=== PATIENT | female | born 1950 | race Caucasian/White ===

== ENCOUNTER → 2017-07-13 | Outpatient (CLI) | payer MEDICARE ==
[2017-07-13 14:19] VITALS: BP 146/78; PULSE 73; RESP 16
--- NOTE | 2017-07-13 14:51 | P.CONS ---
History of Present Illness - Reason for Consult Consult date: 07/13/17 - Chief Complaint Lower back pain - History of Present Illness This is a 67-year-old female with history of episodic lower back pain that comes every 2-3 months and last for 4-6 weeks. Today she denies any pain in her lower back. The back pain usually goes across her lower back and down both legs to the knee level bilaterally sometimes the pain reaches the foot. She has tingling on the lateral aspect of her right thigh as she states. She denies any bowel or bladder dysfunction or any weakness in the lower extremities except when her back pain is severe. The pain does not wake her up at night and she denies any weight loss recently. She does have history of migraine headache and diabetes. She takes [place] for her migraine headache after she failed to respond to multiple antimigraine medications. The patient never tried physical therapy as treatment for her back pain. The lumbar spine MRI showed an extruded left paracentral disc herniation with left lateral recess stenosis and moderate to severe disc desiccation with vacuum disc at L5- S1 level. Review of Systems Review of Systems : 1- Constitutional : no chills , no fever , no night sweats , 2- Ears : no ear discharge , no change in hearing 3-Nose, Mouth ,Throat ; no bleeding gums, no sore throat , no epistaxis , 4-Cardiovascular : Denies chest pain, , no orthopnea , no palpitation 5-Respiratory : Denies cough , no dyspnea , no hemoptysis 6-Gastrointestinal :, no change in bowel habits , no coffee- ground emesis . 7-Genitourinary : No hematuria , no discharge , no incontinence, 8-Musculoskeletal : No gait dysfunction , report low back pain , 9- Neurological : no ataxia , no tremor , no seizure , 10-Psychatric , no suicidal ideation no hallucination 11- Endocrine : no cold intolerence , no polyuria , no polydypsia , 12-Hematologic : no easy bleeding , no easy brusing , 13-Allergic / immunology : no angioedema , no wheezing ,no allergic rhinitis 14-Integumentary : no brttle nails , no change hair / nails , no foot/leg ulcers . Past Medical History Past Medical History: Asthma, Cancer, Diabetes Mellitus, GERD/Reflux, Thyroid Disorder Additional Past Medical History / Comment(s): Hand tremors. Chronic anemia. Uterine cancer History of Any Multi-Drug Resistant Organisms: None Reported Past Surgical History: Appendectomy, Breast Surgery, Hysterectomy, Tonsillectomy Additional Past Surgical History / Comment(s): bunionectomy right foot. Breast reduction Past Psychological History: Anxiety Smoking Status: Former smoker Past Alcohol Use History: Rare Medications and Allergies Allergies Allergy/AdvReac Type Severity Reaction Status Date / Time erythromycin base Allergy Unknown Verified 07/13/17 14:02 Sulfa (Sulfonamide Allergy Unknown Verified 07/13/17 14:02 Antibiotics) codeine AdvReac Nausea & Verified 07/13/17 14:02 Vomiting Physical Exam Vitals: Vital Signs Pulse Resp BP 07/13/17 14:03 73 16 146/78 Intake and Output 07/12/17 07/13/17 07/13/17 22:59 06:59 14:59 Other: Weight 78.925 kg Patient Weight 07/14/17 06:59 Weight 78.925 kg Alert oriented 3 in no apparent distress The patient has reduced range of motion of the lumbar spine Straight leg raising test negative bilaterally Neuro exam of the lower extremities showed normal and symmetrical deep tendon reflexes and normal and symmetrical muscle strength Dev's test negative bilaterally Internal and external rotation of the hip joints did not elicit any pain She has mild tenderness in the lumbar paravertebral area bilaterally No sacroiliac joint tenderness No greater trochanter tenderness bilaterally Lungs are clear to auscultation Heart is regular no murmurs Cranial nerves exam grossly normal with no focal neurologic changes Abnormal cerebellar signs are absent Assessment and Plan Plan: This is a 67-year-old female with: Lumbar spondylosis without myelopathy Lumbar degenerative disc disease Migraine headache Diabetes Essential tremors The patient gets episodic lower back pain however today she denies any pain. I will send the patient to have physical therapy. The patient will call us with the first sign of pain in her lower back and then we will schedule her for lumbar epidural steroid injection under fluoroscopic guidance. The patient states that she gets agitated when she gets steroids and and that's why I think we should use only 40 mg of Depo-Medrol or Kenalog. I thank Dr. You for the referral.
== END | disposition home or self-care (01) ==
LOC: PNWHC3 13:51
PROVIDERS: ATTEND Anesthesiology
DX: M51.36 Other intervertebral disc degeneration, lumbar region (principal); M47.816 Spondylosis without myelopathy or radiculopathy, lumbar region; G43.909 Migraine, unspecified, not intractable, without status migrainosus; E11.9 Type 2 diabetes mellitus without complications; G25.0 Essential tremor; J45.909 Unspecified asthma, uncomplicated; E07.9 Disorder of thyroid, unspecified; F41.9 Anxiety disorder, unspecified; K21.9 Gastro-esophageal reflux disease without esophagitis; Z85.42 Personal history of malignant neoplasm of other parts of uterus; Z98.890 Other specified postprocedural states; Z79.891 Long term (current) use of opiate analgesic; Z90.710 Acquired absence of both cervix and uterus; Z87.891 Personal history of nicotine dependence; Z88.5 Allergy status to narcotic agent; Z88.1 Allergy status to other antibiotic agents
CPT/HCPCS: 99211

== ENCOUNTER 2017-09-13 09:35 | Day surgery (SDC) | payer MEDICARE ==
[2017-09-11 16:05] VITALS: BMI 33.6
[2017-09-13 10:23] VITALS: RESP 16; TEMP 97.7
[2017-09-13] MEDS ORDERED: IV FLUID CONTINUATION 1,000 ML IV ONE ×2 (10:32)
[2017-09-13] MEDS ORDERED: LIDOCAINE 1% 20 ML VIAL (10MG/ML) FOR IV START INTRADERMA ONE (10:33)
[2017-09-13] MEDS ORDERED: LACTATED RINGERS 1,000 ML IV SCH (10:45)
[2017-09-13 10:48] LABS: Glucose,Whole Blood 101 mg/dL (75-99)
[2017-09-13] MEDS ORDERED: LACTATED RINGERS 1,000 ML IV ONE (12:05)
[2017-09-13 12:18] VITALS: BP 140/66; PULSE 68
--- NOTE | 2017-09-13 13:39 | FL ---
EXAMINATION TYPE: FL guided pain mgmt statistic DATE OF EXAM: 09/13/2017 HISTORY: Flouroscopy time 18 seconds of fluoroscopy provided. IMPRESSION: 1. Fluoroscopy time.
--- NOTE | 2017-09-13 15:12 | P.PCN ---
Date of Procedure: 09/13/17 Surgeon: Keyshawn Enriquez Pathology: none sent Condition: stable Disposition: PACU Description of Procedure: PREOPERATIVE DIAGNOSIS: 1-Lumbar radiculitis. POSTOPERATIVE DIAGNOSIS: 1-Lumbar radiculitis. PROCEDURE 1. Lumbar epidural steroid injection under fluoroscopic guidance at the L5-S1 level. 2. Lumbar epidurogram. ANESTHESIA: Local with 1% lidocaine; IV sedation with Versed/fentanyl. EBL: Minimal PROCEDURE INDICATION: The patient with low back pain and radiculitis symptoms unresponsive to conservative treatment. Fluoroscopy was used to optimize visualization of the needle placement and to maximize safety. No use of blood thinners. PROCEDURE DESCRIPTION / TECHNIQUE: The patient was seen and identified in the preoperative area. Risks, benefits, complications, and alternatives were discussed with the patient, including but not limited to bleeding, infection, nerve damage, allergic reactions to medications, and incomplete pain relief. The patient agreed to proceed with the procedure and signed the consent after all questions were answered. IV was started, and vital signs were stable. Patient was taken to the OR and time out was completed to confirm patient position, procedure, laterality of pain, and allergies. The patient was placed in the prone position on procedure table and a pillow was placed under the abdomen to reduce lumbar lordosis. The lumbosacral area was prepped and draped in the usual sterile fashion. Critical pause was taken. Vital signs were closely monitored during the procedure. Conscious sedation was used during the procedure to decrease patients anxiety. Using anterior-posterior fluoroscopy, the L5-S1 interlaminar space was identified and the skin over this site was marked and then infiltrated with 1% lidocaine subcutaneously in a paramedian fashion. Subsequently, a 20-gauge 6- inch Tuohy epidural needle was inserted and advanced toward the epidural space using the Loss of resistance technique and guided by AP and lateral fluoroscopy. The correct needle position in the epidural space was verified with the injection of 2 mL of the water soluble contrast dye Isovue 200 contrast and observing an excellent epidurogram with the epidural spread of the dye, after negative aspiration for blood and CSF and in the absence of paresthesias. Again after negative aspiration, a 6 ml mixture containing 40 mg of Depo Medrol and 2 ml of preservative free Normal Saline, and 2 ml of preservative free lidocaine 1% solution was injected and a washout of epidurogram was seen. Needle was withdrawn intact, skin was cleansed, and bandages were applied. COMPLICATIONS: None COMMENTS: DISPOSITION / PLANS: The patient was placed in a supine position and transferred to the recovery area in a stable condition for observation. There was no evidence of lower extremity motor or sensory deficit after the procedure. Patient was discharged from the recovery room after meeting discharge criteria. Home discharge instructions were given to the patient by the staff. The patient was reexamined prior to discharge and there were no issues. The patient will schedule a follow up in the clinic in 2-4 weeks.
== END 2017-09-13 12:35 | disposition home or self-care (01) ==
LOC: ORPAIN 09:35
PROVIDERS: ATTEND Anesthesiology
DX: G89.29 Other chronic pain (principal); M54.10 Radiculopathy, site unspecified; M54.5 Low back pain; I10 Essential (primary) hypertension; E78.5 Hyperlipidemia, unspecified; E11.9 Type 2 diabetes mellitus without complications; Z79.84 Long term (current) use of oral hypoglycemic drugs; Z79.890 Hormone replacement therapy; Z79.891 Long term (current) use of opiate analgesic; Z79.51 Long term (current) use of inhaled steroids; Z79.899 Other long term (current) drug therapy; Z88.8 Allergy status to other drugs, medicaments and biological substances; Z88.1 Allergy status to other antibiotic agents; Z88.5 Allergy status to narcotic agent; Z88.2 Allergy status to sulfonamides
CPT/HCPCS: 62323; J2250; J1030; J3010; Q9966

== ENCOUNTER → 2017-10-27 | Outpatient (CLI) | payer MEDICARE ==
--- NOTE | 2017-10-27 12:36 | US ---
EXAMINATION TYPE: US venous doppler duplex LE RT DATE OF EXAM: 10/27/2017 11:54 AM COMPARISON: NONE CLINICAL HISTORY: M25.561PAIN IN RT KNEE,M17.11 OSTEOARTHRITIS. SIDE PERFORMED: Right TECHNIQUE: The lower extremity deep venous system is examined utilizing real time linear array sonog ester with graded compression, doppler sonography and color-flow sonography. VESSELS IMAGED: External Iliac Vein (EIV) Common Femoral Vein Deep Femoral Vein Greater Saphenous Vein * Femoral Vein Popliteal Vein Small Saphenous Vein * Proximal Calf Veins (* superficial vessels) Grayscale, color doppler, spectral doppler imaging performed of the deep veins of the right lower ext remity. There is normal flow, compressibility, vascular waveforms. Right Leg: Negative for DVT IMPRESSION: No sonographic evidence of deep venous thrombosis within the right lower extremity.
== END | disposition home or self-care (01) ==
LOC: RADUSWWP 11:30
PROVIDERS: ATTEND Orthopaedic Surgery
DX: M25.561 Pain in right knee (principal); M17.11 Unilateral primary osteoarthritis, right knee

== ENCOUNTER → 2017-11-02 | Outpatient (CLI) | payer MEDICARE ==
[2017-11-02 11:35] VITALS: BP 146/69; PULSE 68; RESP 16
--- NOTE | 2017-11-02 11:54 | P.PAINPG ---
Subjective Progress Note Date: 11/02/17 Principal diagnosis: Lumbar radiculopathy Shira cr 67-year-old woman with a history of lumbar radiculopathy who is undergone one previous lumbar steroid injection. She returns today to our clinic for reevaluation. She reports that she received nearly 100% relief of her leg pain from this procedure. She continues to have some back pain and is interested in having another injection performed hopefully help alleviate these symptoms. Objective - Vital Signs Vital signs: Vital Signs Temp Pulse 68 11/02/17 11:26 Resp 16 11/02/17 11:26 BP 146/69 11/02/17 11:26 Pulse Ox 96 11/02/17 11:26 Intake & Output 11/01/17 11/02/17 11/02/17 18:59 06:59 18:59 Weight 86.183 kg - Exam General: The patient is alert and oriented. Patient is not sedateded Patient is a question appropriately. Cardiac: Heart is regular in rate and rhythm Respiratory: Clear to auscultation. No audible wheezes. Abdomen: Soft nontender nondistended. Lower extremities: Strength is normal bilaterally. Sensation is normal bilaterally. Reflexes are preserved and symmetric bilaterally. Straight leg raise is negative bilaterally. Assessment and Plan Assessment: Plan of Care 1. Medications: Patient receives medications from her primary care physician. She will continue to receive these from them. 2. Interventions: Scheduled patient for repeat of lumbar epidural steroid injection at the L5-S1 interspace. Initially, this procedure was extremely helpful for her. 3. Referrals: None 4. Testing: none 5. Psychological: She denies severe depression or anxiety. No referrals were given today. (1) Lumbar radiculopathy Current Visit: Yes Status: Acute Code(s): M54.16 - RADICULOPATHY, LUMBAR REGION SNOMED Code(s): 932038154 PQRS Measure Charge Sheet Measure #130: Documentation of Current Meds in Medical Chart: Patient's medications documented in chart Measure #226: Tobacco Use: Screen & Cessation Intervention: Pt not a tobacco user Measure #111: Pneumonia Vaccination: Pneumococcal vaccine NOT administered or previously given Measure #47: Advance Care Plan: Advance care planning discussed & documented, pt chose/unable to give Measure #412: Opioid Treatment Agreement: No documentation of signed opioid treatment agreement Measure #408: Opioid Therapy Follow-up Evaluation: Patient had NO f/u eval minimum every 3 months during opioid therapy Measure #317: Preventitive Care & Scrn High Bld Press & F/U: Normal blood pressure, f/u not required Measure #128: Body Mass Index (BMI) Screening & Follow-up: BMI documented within normal parameters Measure #131: Pain Assessment & Follow-up: Pain positive & plan documented Measure #431: Unhealthy Alcohol Use Preventative Care & Scrn: Patient identified as unhealthy alcohol user; counseling given PQRS Narrative: Smoking Status Former smoker Do You Want the Pneumonia No Vaccine AT THIS TIME? Blood Pressure 146/69 Pain Intensity [Bilateral 4 Lower Back] Scale Used Numeric (1 - 10) Hx Alcohol Use (MH) Yes: rare Home Medications: Ambulatory Orders Baclofen [Lioresal] 10 mg PO HS 07/13/17 Cyanocobalamin [Vitamin B-12 Injection] 1,000 mcg SQ QMONTH 07/13/17 Fluticasone/Salmeterol [Advair 100-50 Diskus] 2 puff PO BID 07/13/17 Gabapentin [Neurontin] 300 mg PO HS 07/13/17 Hydrocodone/Acetaminophen [Hydrocodon-Acetaminophn 10-325] 1 each PO TID PRN 06/29 Levothyroxine Sodium [Synthroid] 125 mcg PO DAILY 07/13/17 Meloxicam 7.5 mg PO BID 07/13/17 Omeprazole 20 mg PO DAILY 07/13/17 Propranolol HCl [Propranolol HCl ER] 120 mg PO DAILY 07/13/17 metFORMIN HCL [Glucophage] 500 mg PO DAILY 07/13/17 Controlled Substance Measures - Controlled Substance Measures Is patient prescribed a controlled substance at discharge?: No When asked, does pt state using other controlled substances?: No If prescribed controlled substance>3 days was MAPS reviewed?: No If Rx opioid, was Start Talking consent form obtained?: No If opioid is for acute pain is fill amount 7 days or less?: No Was information provided regarding opioid addiction?: No
== END | disposition home or self-care (01) ==
LOC: PNWHC3 10-26 14:30
PROVIDERS: ATTEND Pain Medicine Pain Medicine
DX: M54.16 Radiculopathy, lumbar region (principal); Z87.891 Personal history of nicotine dependence; Z79.891 Long term (current) use of opiate analgesic; Z79.899 Other long term (current) drug therapy; Z79.1 Long term (current) use of non-steroidal anti-inflammatories (NSAID); Z79.84 Long term (current) use of oral hypoglycemic drugs
CPT/HCPCS: 99211

== ENCOUNTER 2017-11-09 08:23 | Day surgery (SDC) | payer MEDICARE ==
[~2017-11-09 08:23] MED LIST: LACTATED RINGERS 1,000 ML IV SCH
[2017-11-09 09:10] VITALS: RESP 16; TEMP 98
[2017-11-09] MEDS ORDERED: LACTATED RINGERS 1,000 ML IV ONE (09:20)
[2017-11-09] MEDS ORDERED: LIDOCAINE 1% 20 ML VIAL (10MG/ML) FOR IV START INTRADERMA ONE (09:21)
[2017-11-09 09:22] LABS: Glucose,Whole Blood 110 mg/dL (75-99)
--- NOTE | 2017-11-09 09:54 | P.PCN ---
Date of Procedure: 11/09/17 Surgeon: Luiz Cameron Description of Procedure: PREOPERATIVE DIAGNOSIS: Herniated nucleus pulposus, left lumbar radiculopathy POSTOPERATIVE DIAGNOSIS: Same PROCEDURE Lumbar epidural steroid injection under fluoroscopic guidance at the L4 5 level. ANESTHESIA: Local with 1% lidocaine 3 ml and IV sedation with Versed 2 mg EBL: Minimal PROCEDURE INDICATION: The patient with low back pain and radiculitis symptoms unresponsive to conservative treatment. Fluoroscopy was used to optimize visualization of the needle placement and to maximize safety. PROCEDURE DESCRIPTION / TECHNIQUE: The patient was seen and identified in the preoperative area. Risks, benefits , complications including but not limited to infections ,bleeding ,allergic reaction to the medications ,nerve damage and not complete pain relief , and alternatives were discussed with the patient. The patient agreed to proceed with the procedure and signed the consent. IV was started, and vital signs were stable. Patient was taken to the OR and time out was completed. The patient was placed in the prone position on procedure table and a pillow was placed under the abdomen to reduce lumbar lordosis. The lumbosacral area was prepped and draped in the usual sterile fashion.ere closely monitored during the procedure. Conscious sedation was used during the procedure to decrease patient's anxiety. Vital signs was monitered during the entire procedure. Using anterior-posterior fluoroscopy, the L5-S1 interlaminar space was identified and the skin over this site was marked and then infiltrated with 1% lidocaine subcutaneously. Subsequently, a 20-gauge Tuohy epidural needle was inserted and advanced toward the epidural space using the Loss of resistance technique and guided by AP and lateral fluoroscopy. The correct needle position in the epidural space was verified with the injection of contrast and observing an excellent epidurogram with the epidural spread of the dye, after negative aspiration for blood and CSF and in the absence of paresthesias. Again after negative aspiration, a 6 ml mixture containing 40 mg of Depo-Medrol was injected and a washout of epidurogram was seen. Needle was withdrawn intact, skin was cleansed, and bandages were applied. COMPLICATIONS: None DISPOSITION / PLANS: The patient was placed in a supine position and transferred to the recovery area in a stable condition for observation. There was no evidence of lower extremity motor or sensory deficit after the procedure. Patient was discharged from the recovery room after meeting discharge criteria. Home discharge instructions were given to the patient by the staff. The patient was reexamined prior to discharge. The patient will schedule a follow up in the clinic in 2-4 weeks.
[2017-11-09] MEDS ORDERED: IV FLUID CONTINUATION 1,000 ML IV ONE (09:58)
[2017-11-09 10:19] VITALS: BP 113/70; PULSE 65
--- NOTE | 2017-11-09 11:00 | FL ---
Fluoroscopy HISTORY: Pain 1 seconds fluoroscopy time supplied to the referring clinician. 1 intraoperative C-arm images docume nt the procedure. See dictated report from anesthesia.
== END 2017-11-09 10:34 | disposition home or self-care (01) ==
LOC: ORPAIN 08:23
PROVIDERS: ATTEND Pain Medicine Pain Medicine
DX: M51.16 Intervertebral disc disorders with radiculopathy, lumbar region (principal); E11.9 Type 2 diabetes mellitus without complications; Z88.2 Allergy status to sulfonamides; Z88.5 Allergy status to narcotic agent; Z88.8 Allergy status to other drugs, medicaments and biological substances; Z88.1 Allergy status to other antibiotic agents
CPT/HCPCS: 62323; J1030

== ENCOUNTER → 2017-11-30 | Day surgery (SDC) | payer MEDICARE ==
[2017-11-27 12:51] VITALS: BMI 33.8
[~2017-11-30] MED LIST changes: +IV FLUID CONTINUATION 1,000 ML IV ONE; +LIDOCAINE 1% 20 ML VIAL (10MG/ML) FOR IV START INTRADERMA ONE
[2017-11-30 08:02] VITALS: TEMP 97.6
[2017-11-30 08:26] LABS: Glucose,Whole Blood 107 mg/dL (75-99)
--- NOTE | 2017-11-30 08:42 | P.PCN ---
Date of Procedure: 11/30/17 Procedure(s) Performed: PREOPERATIVE DIAGNOSIS: 1- Lumbar herniated Disc Diseas 2-lumbar radiculopathy POSTOPERATIVE DIAGNOSIS: Same as preop diagnosis. PROCEDURE 1. Lumbar epidural steroid injection under fluoroscopic guidance at the L4-5 level. 2. Lumbar epidurogram. ANESTHESIA: Local with 1% lidocaine 3 ml and , moderate sedation with intravenous Versed 2 mg ,and fentanyle 100 Mcg EBL: Minimal PROCEDURE INDICATION: The patient with low back pain and radiculitis symptoms unresponsive to conservative treatment. Fluoroscopy was used to optimize visualization of the needle placement and to maximize safety. PROCEDURE DESCRIPTION / TECHNIQUE: The patient was seen and identified in the preoperative area. Risks, benefits , complications including but not limited to infections ,bleeding ,allergic reaction to the medications ,nerve damage and not complete pain releife , and alternatives were discussed with the patient. The patient agreed to proceed with the procedure and signed the consent. IV was started, and vital signs were stable. Patient was taken to the OR and time out was completed. The patient was placed in the prone position on procedure table and a pillow was placed under the abdomen to reduce lumbar lordosis. The lumbosacral area was prepped and draped in the usual sterile fashion.ere closely monitored during the procedure. Conscious sedation was used during the procedure to decrease patients anxiety. Vital signs was monitered during the entire procedure. Using anterior-posterior fluoroscopy, the L4-5 interlaminar space was identified and the skin over this site was marked and then infiltrated with 1% lidocaine subcutaneously. Subsequently, a 20-gauge Tuohy epidural needle was inserted and advanced toward the epidural space using the ``Loss of resistance technique and guided by AP and lateral fluoroscopy. The correct needle position in the epidural space was verified with the injection of 2 mL of the water soluble contrast dye Isovue 200 contrast and observing an excellent epidurogram with the epidural spread of the dye, after negative aspiration for blood and CSF and in the absence of paresthesias. Again after negative aspiration, a 6 ml mixture containing 80 mg of Depomedrol and 2 ml of preservative free Normal Saline, and 2 ml of preservative free lidocaine 1% solution was injected and a washout of epidurogram was seen. Needle was withdrawn intact, skin was cleansed, and bandages were applied. COMPLICATIONS: None DISPOSITION / PLANS: The patient was placed in a supine position and transferred to the recovery area in a stable condition for observation. There was no evidence of lower extremity motor or sensory deficit after the procedure. Patient was discharged from the recovery room after meeting discharge criteria. Home discharge instructions were given to the patient by the staff. The patient was reexamined prior to discharge. The patient will schedule a follow up in the clinic in 2-4 weeks.
[2017-11-30 08:57] VITALS: PULSE 61; RESP 18
[2017-11-30 09:00] VITALS: BP 105/60
--- NOTE | 2017-11-30 09:28 | FL ---
EXAMINATION TYPE: FL guided pain mgmt statistic DATE OF EXAM: 11/30/2017 HISTORY: Flouroscopy time 1 seconds of fluoroscopy provided. IMPRESSION: 1. Fluoroscopy time.
== END ==
LOC: ORPAIN 06:57
PROVIDERS: ATTEND Specialist
DX: M51.16 Intervertebral disc disorders with radiculopathy, lumbar region (principal); E11.9 Type 2 diabetes mellitus without complications; Z88.1 Allergy status to other antibiotic agents; Z88.5 Allergy status to narcotic agent; Z88.2 Allergy status to sulfonamides; Z88.8 Allergy status to other drugs, medicaments and biological substances
CPT/HCPCS: 62323; J2250; J1030; J1100; J3010

== ENCOUNTER → 2017-12-28 | Outpatient (CLI) | payer MEDICARE ==
[2017-12-28 13:24] VITALS: BP 115/63; PULSE 68; RESP 16
--- NOTE | 2017-12-28 13:47 | P.PAINPG ---
Subjective Progress Note Date: 12/28/17 This is follow-up visit for this patient with a history of severe and chronic low back pain secondary to lumbar herniated disc disease, lumbar radiculopathy We have done an interventional pain procedure lumbar epidural steroid injection 3, the day she reported that her pain improved significantly The patient currently on Neurontin 300 mg daily at bedtime, Mobic 7.5 mg twice a day, and Banning 10/325 (prescription from her primary care Patient denies any side effect of the medication , patient denies any excessive drowsiness or sleepiness, patient denies any suicidal ideation, Patient reported that the current medication is helping to control the pain and improve the activity of daily livings, Patient here today for follow-up visit , she reported that she had similar episode of muscle spasm and low back area and the cortez area, in her lower extremity Objective - Vital Signs Vital signs: Vital Signs Temp Pulse 68 12/28/17 13:17 Resp 16 12/28/17 13:17 BP 115/63 12/28/17 13:17 Pulse Ox 98 12/28/17 13:17 Intake & Output 12/27/17 12/28/17 12/28/17 18:59 06:59 18:59 Weight 83.915 kg - Exam Physical Examinations : 1-Constitutiona : Cooperative , not in acute distress . 2-HEENT : nech ; supple , no Lymphadenopathy , normal thyroid size . eyes : no ptosis , no icterus , no photophobia . ENT : normal of hearing , normal oropharynx , no Thrush . 3- Respiratory : Chest clear to auscultations Bilaterally , no wheezing , no Rhonchi . 4- Cardiovascular : regular rate and rhythem , S1 , S2 , no S3 , no S4. 5- Gastrointestinal : abdomen soft no tenderness , bowel sounds , no organomegally . 6- Genitourinary : Defferred . 7- neurologic : Cranial nerve II to XII intact , no focal neurological deffecit . 8-psychatric : alert , oriented X 3 , appropriate affect , intact judgment and insight . 9-Lymphatic : no Lymphadenopathy . 10- musculoskeltal : , Lumber spine = normal motor strength and normal sensation Assessment and Plan Plan: Assessment and plan= chronic low back pain secondary to lumbar herniated disc disease , lumbar radiculopathy. Pain improved significantly after lumbar epidural steroid injections , she denies any side effect of the current medication (getting prescription refills from her primary care ) , she had multiple episodes of muscle spasm in her lower extremity, recommend discontinue baclofen and patient given prescription for Zanaflex 4 mg twice a day when necessary for muscle spasm, and she will follow up with the pain clinic when necessary Time with Patient: Less than 30 PQRS Measure Charge Sheet Measure #130: Documentation of Current Meds in Medical Chart: Patient's medications documented in chart Measure #226: Tobacco Use: Screen & Cessation Intervention: Pt not a tobacco user Measure #111: Pneumonia Vaccination: Pneumococcal vaccine administered or previously received Measure #47: Advance Care Plan: Advance care planning discussed & documented, plan or surrogate given Measure #412: Opioid Treatment Agreement: No documentation of signed opioid treatment agreement Measure #408: Opioid Therapy Follow-up Evaluation: Patient had NO f/u eval minimum every 3 months during opioid therapy Measure #317: Preventitive Care & Scrn High Bld Press & F/U: Normal blood pressure, f/u not required Measure #128: Body Mass Index (BMI) Screening & Follow-up: BMI documented ABOVE normal parameters - f/u documented Measure #131: Pain Assessment & Follow-up: Pain positive & plan documented, Follow-up PRN Measure #431: Unhealthy Alcohol Use Preventative Care & Scrn: Patient not identified as an unhealthy alcohol user PQRS Narrative: Smoking Status Former smoker Do You Want the Pneumonia No Vaccine AT THIS TIME? Blood Pressure 115/63 Pain Intensity [None] 0 Scale Used Numeric (1 - 10) Hx Alcohol Use (MH) Yes: rare Home Medications: Ambulatory Orders Baclofen [Lioresal] 10 mg PO HS 07/13/17 Cyanocobalamin [Vitamin B-12 Injection] 1,000 mcg SQ QMONTH 07/13/17 Fluticasone/Salmeterol [Advair 100-50 Diskus] 2 puff PO BID 07/13/17 Gabapentin [Neurontin] 300 mg PO HS 07/13/17 Hydrocodone/Acetaminophen [Hydrocodon-Acetaminophn 10-325] 1 each PO TID PRN 06/29 Levothyroxine Sodium [Synthroid] 125 mcg PO DAILY 07/13/17 Meloxicam 7.5 mg PO BID 07/13/17 Omeprazole 20 mg PO DAILY 07/13/17 Propranolol HCl [Propranolol HCl ER] 120 mg PO DAILY 07/13/17 metFORMIN HCL [Glucophage] 500 mg PO DAILY 07/13/17 Calcium Carbonate [Calcium] 600 mg PO DAILY 11/27/17 Cholecalciferol (Vitamin D3) [Vitamin D3] 2,000 unit PO MOWEFR 11/27/17 Magnesium Citrate 250 mg PO DAILY 11/27/17 tiZANidine HCL [Zanaflex] 4 mg PO Q12HR PRN #60 tab 12/28/17 Controlled Substance Measures - Controlled Substance Measures Is patient prescribed a controlled substance at discharge?: No When asked, does pt state using other controlled substances?: No If prescribed controlled substance>3 days was MAPS reviewed?: No If Rx opioid, was Start Talking consent form obtained?: No If opioid is for acute pain is fill amount 7 days or less?: No Was information provided regarding opioid addiction?: No
== END | disposition home or self-care (01) ==
LOC: PNWHC3 12:21
PROVIDERS: ATTEND Specialist
DX: G89.29 Other chronic pain (principal); M51.16 Intervertebral disc disorders with radiculopathy, lumbar region; M54.5 Low back pain; Z87.891 Personal history of nicotine dependence; Z79.899 Other long term (current) drug therapy; Z79.1 Long term (current) use of non-steroidal anti-inflammatories (NSAID); Z79.84 Long term (current) use of oral hypoglycemic drugs
CPT/HCPCS: 99211

== ENCOUNTER → 2018-01-08 | Outpatient (CLI) | payer MEDICARE ==
--- NOTE | 2018-01-08 22:39 | MR ---
EXAMINATION TYPE: MR brain wo/w con DATE OF EXAM: 01/08/2018 COMPARISON: NONE, outside CT nor a report available at time of dictation. HISTORY: Migraines, abnormal CT TECHNIQUE: Multiplanar, multisequence images of the brain and brainstem is performed without and with IV contras t, utilizing 9 mL intravenous Gadavist . FINDINGS: Diffusion weighted images demonstrate no evidence of a recent infarct or other diffusion ab normality. There is no worrisome extra-axial fluid collection. There is ventricular and sulcal promi nence consistent with diffuse cerebral atrophy. There are scattered foci of T2 hyperintensity seen th roughout the superficial, deep, and periventricular white matter bilaterally. Estimated 70-90 scatter ed and confluent lesions. Midline structures demonstrate normal morphology. The craniocervical junction appears within normal limits. Post contrast images demonstrate 15 by 8mm posterior left frontal extra-axial homogeneous en hancing mass consistent with meningioma axial image 19. Mass measures 13 mm craniocaudal dimension co og image 19. The dural venous sinuses appear patent. The visualized sinuses are clear and the glob es are intact. IMPRESSION: 1. There is mild diffuse age-related cerebral atrophy and moderate to advanced chronic small vessel i schemic change. 2. There is 15 x 8 x 13 mm posterior left frontal peripheral meningioma incidentally noted.
== END | disposition home or self-care (01) ==
LOC: RADMRIMAIN 17:52
PROVIDERS: ATTEND Internal Medicine
DX: G31.1 Senile degeneration of brain, not elsewhere classified (principal); I67.82 Cerebral ischemia; D32.0 Benign neoplasm of cerebral meninges
CPT/HCPCS: 70553; A9581

== ENCOUNTER → 2018-10-09 | Outpatient (CLI) | payer MEDICARE ==
[2018-10-09 13:40] VITALS: BP 138/84; PULSE 62; RESP 16
--- NOTE | 2018-10-10 08:04 | P.PAINPG ---
Subjective Progress Note Date: 10/09/18 This is follow-up visit for this 68 years old female with a history of severe and chronic low back pain secondary to lumbar herniated disc disease, lumbar radiculopathy We have done an interventional pain procedure lumbar epidural steroid injectionx3, the pain improved significantly, and and she gets excellent pain relief for more than 6 months, recently she started complaining of severe bilateral hip pain, and some mid back pain, he denies any initiating event, pain is constant and increases with any activity, she denies any motor or sensory deficits, he denies any fever or night sweats, she denies any change in the bowel movement or urination , patient continued to use Neurontin 300 mg twice a day, Mobic 7.5 mg twice a day, [place]ry[place] 10/325 when necessary, Zanaflex 4 mg every 12 hours, she denies any side effect of the medication and she is getting prescriptions from her primary care Physical Examinations : -Constitutiona : Cooperative , not in acute distress . -HEENT : nech ; supple , no Lymphadenopathy , normal thyroid size . eyes : no ptosis , no icterus, no photophobia . - Genitourinary : Defferred . - neurologic : Cranial nerve II to XII intact , no focal neurological deffecit . -psychatric : alert , oriented X 3 , appropriate affect , intact judgment and insight . -Lymphatic : no Lymphadenopathy . - musculoskeltal : Lumber spine moter stegnth lower extremities ,thigh and legs 5/5 Right side , 5/5 Left side deep tendon reflexes : normal Knee Jerk , normal ankle Jerk lumber facet Loading Test negative bilaterally Range of motion of the lumbar spine Flexion 60 degrees, extension 30 degrees strait leg raising test negative bilaterally Fabere test negative bilaterally Severe tenderness over the trochanteric bursa bilaterally Trigger point identified in the thoracic paravertebral muscles bilaterally Assessment and plan= chronic low back pain secondary to lumbar herniated disc disease , lumbar radiculopathy. Pain improved after lumbar epidural steroid injection Patient currently having symptoms of bilateral trochanteric bursitis And patient had myofascial pain syndrome thoracic area Patient would benefit from bilateral to contact bursa steroid injections under fluoroscopy guidance and the same time we can do trigger point injections thoracic paravertebral muscles Objective - Vital Signs Vital signs: Vital Signs Temp Pulse 62 10/09/18 13:30 Resp 16 10/09/18 13:30 BP 138/84 04/30/19 13:30 Pulse Ox 93 L 10/09/18 13:30 Intake & Output 10/09/18 10/10/18 10/10/18 18:59 06:59 18:59 Weight 82.554 kg PQRS Measure Charge Sheet Measure #130: Documentation of Current Meds in Medical Chart: Patient's medications documented in chart Measure #226: Tobacco Use: Screen & Cessation Intervention: Pt not a tobacco user Measure #111: Pneumonia Vaccination: Pneumococcal vaccine NOT administered or previously given Measure #47: Advance Care Plan: Advance care planning discussed & documented, pt chose/unable to give Measure #412: Opioid Treatment Agreement: No documentation of signed opioid treatment agreement Measure #408: Opioid Therapy Follow-up Evaluation: Patient had NO f/u eval minimum every 3 months during opioid therapy Measure #317: Preventitive Care & Scrn High Bld Press & F/U: Pre-hypertensive or hypertensive BP documented, pt will f/u with PCP Measure #128: Body Mass Index (BMI) Screening & Follow-up: BMI documented ABOVE normal parameters - f/u documented Measure #131: Pain Assessment & Follow-up: Pain positive & plan documented, Follow-up scheduled Measure #431: Unhealthy Alcohol Use Preventative Care & Scrn: Patient not identified as an unhealthy alcohol user PQRS Narrative: Smoking Status Former smoker Do You Want the Pneumonia Vaccine Up to Date Vaccine AT THIS TIME? Blood Pressure 138/84 Pain Intensity [Bilateral Leg] 5 Scale Used Numeric (1 - 10) Hx Alcohol Use (MH) Yes: rare Home Medications: Ambulatory Orders Baclofen [Lioresal] 10 mg PO BID 07/13/17 Cyanocobalamin [Vitamin B-12 Injection] 1,000 mcg SQ QMONTH 07/13/17 Fluticasone/Salmeterol [Advair 100-50 Diskus] 2 puff PO BID 07/13/17 Gabapentin [Neurontin] 300 mg PO BID 07/13/17 Hydrocodone/Acetaminophen [Hydrocodon-Acetaminophn 10-325] 1 each PO TID PRN 07/13/17 Levothyroxine Sodium [Synthroid] 125 mcg PO DAILY 07/13/17 Meloxicam 7.5 mg PO BID 07/13/17 Omeprazole 40 mg PO DAILY 07/13/17 Propranolol HCl [Propranolol HCl ER] 120 mg PO DAILY 07/13/17 metFORMIN HCL [Glucophage] 500 mg PO DAILY 07/13/17 Calcium Carbonate [Calcium] 600 mg PO DAILY 11/27/17 Cholecalciferol (Vitamin D3) [Vitamin D3] 2,000 unit PO MOWEFR 11/27/17 Magnesium Citrate 250 mg PO DAILY 11/27/17 Controlled Substance Measures - Controlled Substance Measures Is patient prescribed a controlled substance at discharge?: No
== END ==
LOC: PNWHC3 13:23
PROVIDERS: ATTEND Specialist
DX: G89.29 Other chronic pain (principal); M51.16 Intervertebral disc disorders with radiculopathy, lumbar region; M70.62 Trochanteric bursitis, left hip; M70.61 Trochanteric bursitis, right hip; M79.18 Myalgia, other site; Z87.891 Personal history of nicotine dependence; Z79.899 Other long term (current) drug therapy; Z79.84 Long term (current) use of oral hypoglycemic drugs; Z79.1 Long term (current) use of non-steroidal anti-inflammatories (NSAID); Z79.891 Long term (current) use of opiate analgesic
CPT/HCPCS: 99211

== ENCOUNTER 2018-10-18 08:26 | Day surgery (SDC) | payer MEDICARE ==
[2018-10-16 13:42] VITALS: BMI 33.6
[~2018-10-18 08:26] MED LIST changes: -IV FLUID CONTINUATION 1,000 ML IV ONE; -LIDOCAINE 1% 20 ML VIAL (10MG/ML) FOR IV START INTRADERMA ONE
[2018-10-18 08:52] VITALS: RESP 16; TEMP 98.4
[2018-10-18] MEDS ORDERED: LIDOCAINE 1% 20 ML VIAL (10MG/ML) FOR IV START INTRADERMA ONE (09:05)
[2018-10-18 09:15] LABS: Glucose,Whole Blood 97 mg/dL (75-99)
[2018-10-18] MEDS ORDERED: IV FLUID CONTINUATION 1,000 ML IV ONE (10:05)
--- NOTE | 2018-10-18 10:07 | P.PCN ---
Date of Procedure: 10/18/18 Procedure(s) Performed: Pre OP diagnoses= 1-Bilateral trochanteric bursitis . 2-myofascial pain synd aram thoracic area Postoperative diagnosis= 1-Bilateral trochanteric bursitis.. 2-myofascial pain syndrome thoracic area Operation= 1-Bilateral trochanteric bursa steroid injection under fluoroscopy guidance. 2-trigger point injection thoracic paravertebral muscles, 1 on the right side, and 1 on the left side Anesthesia= moderate sedation with IV , Versed 2 mg and fentanyl 50 micrograms and local infiltration with lidocaine 1% 2 mL . Complications= none . Description of the procedure= patient had history of severe low back pain and hip pain secondary to trochanteric bursitis for this reason patient was a good candidate to have bilateral trochanteric bursa steroid injection which hopefully it will help his pain, risks and benefits of the procedure including but not limited to risk of infection and bleeding and not complete pain relief and ALLERGIC reaction to medication discussed with the patient and the alternative also discussed with the patient and he agreed with the preceding taken to the operating room placed in prone position or standard monitors applied patient and after induction of anesthesia the back and the hip area prepped with chlorhexidine 3 times, and under sterile technique using 25-gauge needle for skin and subcutaneous tissue infiltration was first admitted the right trochanteric bursa injection at 25-gauge Quincke-type spinal needle advanced slowly under fluoroscopy and placed in the right trochanteric bursa needle placement confirmed with AP and lateral view and after appropriate needle placement confirmed under fluoroscopy 5 ML of Ropivacaine 0.5% mixed with 20 mg of Depo-Medrol injected after negative aspiration for heme and there was no CSF and there was no paresthesia during the injection and needle removed and a dressing applied and the same procedure repeated at the left side, patient tolerated the procedure well without any complication . And after that , thoracic area prepped with chlorhexidine 3, then I did the trigger point injection one on the right side thoracic paravertebral muscles around T7 levels on the right side and another trigger point injection on the left side thoracic paravertebral muscles around T5 , using 25-gauge needles Each of the trigger points injected with ropivacaine 0.5% 3 and injected at each trigger point after negative aspiration and there was no paresthesia during the injection, patient tolerated the procedure well without any complications.
[2018-10-18 10:18] VITALS: BP 151/71; PULSE 65
--- NOTE | 2018-10-18 11:16 | FL ---
EXAMINATION TYPE: FL guided pain mgmt statistic DATE OF EXAM: 10/18/2018 HISTORY: Flouroscopy time 9 seconds of fluoroscopy provided. IMPRESSION: 1. Fluoroscopy time.
== END 2018-10-18 10:30 | disposition home or self-care (01) ==
LOC: ORPAIN 08:26
PROVIDERS: ATTEND Specialist
DX: M79.18 Myalgia, other site (principal); M70.62 Trochanteric bursitis, left hip; M70.61 Trochanteric bursitis, right hip; Z88.1 Allergy status to other antibiotic agents; Z88.2 Allergy status to sulfonamides; Z88.5 Allergy status to narcotic agent
CPT/HCPCS: 20552; 20610; J2250; J1030; J3010

== ENCOUNTER → 2018-11-01 | Day surgery (SDC) | payer MEDICARE ==
[2018-10-30 10:54] VITALS: BMI 33.5
[~2018-11-01] MED LIST changes: +IV FLUID CONTINUATION 1,000 ML IV ONE; +LIDOCAINE 1% 20 ML VIAL (10MG/ML) FOR IV START INTRADERMA ONE
[2018-11-01 08:09] VITALS: RESP 16; TEMP 97.4
[2018-11-01 08:21] LABS: Glucose,Whole Blood 105 mg/dL (75-99)
--- NOTE | 2018-11-01 09:01 | P.PCN ---
Date of Procedure: 11/01/18 Procedure(s) Performed: Pre OP diagnoses= 1-Bilateral trochanteric bursitis . 2-myofascial pain syndrome thoracic area Postoperative diagnosis= 1-Bilateral trochanteric bursitis.. 2-myofascial pain syndrome thoracic area Operation= 1-Bilateral trochanteric bursa steroid injection under fluoroscopy guidance. 2-trigger point injection thoracic paravertebral muscles, 1 on the right side, and 1 on the left side Anesthesia= moderate sedation with IV , Versed 2 mg and fentanyl 50 micrograms and local infiltration with lidocaine 1% 2 mL . Complications= none . Description of the procedure= patient had history of severe low back pain and hip pain secondary to trochanteric bursitis for this reason patient was a good candidate to have bilateral trochanteric bursa steroid injection which hopefully it will help his pain, risks and benefits of the procedure including but not limited to risk of infection and bleeding and not complete pain relief and ALLERGIC reaction to medication discussed with the patient and the alternative also discussed with the patient and he agreed with the preceding taken to the operating room placed in prone position or standard monitors applied patient and after induction of anesthesia the back and the hip area prepped with chlo rhexidine 3 times, and under sterile technique using 25-gauge needle for skin and subcutaneous tissue infiltration was first admitted the right trochanteric bursa injection at 25-gauge Quincke-type spinal needle advanced slowly under fluoroscopy and placed in the right trochanteric bursa needle placement confirmed with AP and lateral view and after appropriate needle placement confirmed under fluoroscopy 5 ML of Ropivacaine 0.5% mixed with 20 mg of Depo- Medrol injected after negative aspiration for heme and there was no CSF and there was no paresthesia during the injection and needle removed and a dressing applied and the same procedure repeated at the left side, patient tolerated the procedure well without any complication . And after that , thoracic area prepped with chlorhexidine 3, then I did the trigger point injection one on the right side thoracic paravertebral muscles around T7 levels on the right side and another trigger point injection on the left side thoracic paravertebral muscles around T5 , using 25-gauge needles Each of the trigger points injected with ropivacaine 0.5% 3 and injected at each trigger point after negative aspiration and there was no paresthesia during the injection, patient tolerated the procedure well without any complications.
[2018-11-01 09:21] VITALS: BP 134/62; PULSE 69
--- NOTE | 2018-11-01 11:53 | FL ---
Fluoroscopy HISTORY: Pain 3 seconds fluoroscopy time supplied to the referring clinician. 2 intraoperative C-arm images docume nt the procedure. See dictated report from anesthesia.
== END ==
LOC: ORPAIN 07:51
PROVIDERS: ATTEND Specialist
DX: M70.62 Trochanteric bursitis, left hip (principal); M70.61 Trochanteric bursitis, right hip; M79.18 Myalgia, other site; Z91.09 Other allergy status, other than to drugs and biological substances
CPT/HCPCS: 77002; 20552; 20610; J2250; J1030; J3010

== ENCOUNTER → 2018-11-22 | Outpatient (CLI) | payer MEDICARE ==
[2018-11-22 11:36] VITALS: RESP 16
--- NOTE | 2018-11-22 11:39 | P.PN ---
Subjective Progress Note Date: 11/22/18 This is follow-up visit for this 68 years old female with a history of severe and chronic low back pain secondary to lumbar herniated disc disease, the country bursitis and myofascial pain syndrome, We have done an interventional pain procedure bilateral trochanteric bursitis and trigger point injection, and she reported that her pain improved significantly and she is currently had 0 pain , she is able to ambulate without difficulty ,she denies any motor or sensory deficits, he denies any fever or night sweats, she denies any change in the bowel movement or urination , patient continued to use Neurontin 300 mg twice a day, Mobic 7.5 mg , baclofen 20 mg daily at bedtime, she denies any side effect of the medication and she is getting prescriptions from her primary care Physical Examinations : -Constitutiona : Cooperative , not in acute distress . -HEENT : nech ; supple , no Lymphadenopathy , normal thyroid size . eyes : no ptosis , no icterus, no photophobia . y . - musculoskeltal : Lumber spine moter stegnth lower extremities ,thigh and legs 5/5 Right side , 5/5 Left side y Assessment and plan= bilateral trochanteric bursitis, myofascial pain syndrome thoracic area Pain improved after bilateral to contact bursitis and trigger point injection, she had 0 pain since the injection and she will follow up with the pain clinic when necessary. - PQRS measures = - Patient's medications are documented in the chart. -Tobacco use is negative and counseling.Given. -Patient's has received pneumococcal vaccine. -Advanced care planning discussed, patient not eligible. -Opiate contract not signed. -Pain negative and she will follow up when necessary. -Patient's blood pressure measured [ 150/87 ] , and documented in the record ,and patient will follow up with the primary care. -Patient's weight was measured and body mass index ,above the normal limits and counseling was done. and patient instructed to follow-up with the primary care physician. -Patient was not identified as an unhealthy alcohol user Objective - Vital Signs Vital signs: Intake & Output 11/21/18 11/22/18 11/22/18 18:59 06:59 18:59 Weight 86.183 kg
[2018-11-22 11:41] VITALS: BP 150/87; PULSE 64; TEMP 98.3
== END | disposition home or self-care (01) ==
LOC: PNWHC3 10:49
PROVIDERS: ATTEND Specialist
DX: G89.29 Other chronic pain (principal); M70.61 Trochanteric bursitis, right hip; M70.62 Trochanteric bursitis, left hip; M51.26 Other intervertebral disc displacement, lumbar region; M79.18 Myalgia, other site; Z79.1 Long term (current) use of non-steroidal anti-inflammatories (NSAID); Z79.899 Other long term (current) drug therapy
CPT/HCPCS: 99211

== ENCOUNTER → 2018-11-30 | Outpatient (CLI) | payer MEDICARE ==
--- NOTE | 2018-11-30 14:12 | MR ---
EXAMINATION TYPE: MR brain wo/w con DATE OF EXAM: 11/30/2018 COMPARISON: Prior MR brain 01/08/2018 HISTORY: Benign neoplasm of brain, unspecified TECHNIQUE: Multiplanar, multisequence images of the brain and brainstem is performed without and with IV contras t, utilizing 8.5 mL intravenous Gadavist . FINDINGS: Diffusion weighted images demonstrate no evidence of a recent infarct or other diffusion ab normality. There is no extra-axial fluid collection or significant interval change in extensive whit e matter signal abnormality. The ventricular system and cisternal spaces are normal in size and appe arance. The brain volume is age appropriate. Midline structures demonstrate normal morphology. The craniocervical junction appears within normal limits. Post contrast abnormal enhancement as on prior exam, the lesion is essentially stable in siz e the dural venous sinuses appear patent. The visualized sinuses are clear and the globes are intact. IMPRESSION: Stable exam. No significant interval change. Ice compatible with meningioma.
== END | disposition home or self-care (01) ==
LOC: RADMRIMAIN 12:32
PROVIDERS: ATTEND Psychiatry & Neurology Neurology
DX: D33.2 Benign neoplasm of brain, unspecified (principal)
CPT/HCPCS: 70553; A9585

== ENCOUNTER → 2019-08-08 | Outpatient (CLI) | payer MEDICARE ==
[2019-08-08 14:45] VITALS: BP 112/73; PULSE 66; RESP 18
--- NOTE | 2019-08-08 15:15 | P.PAINPG ---
Subjective Progress Note Date: 08/08/19 This is 69 years old female, who is being seen at [facility] on [facility] pain clinic, and she is diagnosed with lumbar herniated disc disease lumbar radiculopathy and lumbar disc degeneration, and trochanteric bursitis, previously we have done lumbar epidural steroid injection at L4 5 levels, and t rochanteric bursa steroid injection, and this helped her low back pain for more than a year, recently she started complaining of severe low back pain with radiation to the left lower extremity, and also she is complaining of severe left hip pain, the pain is constant and increases with any activity, and interfering with the quality of life, she continued to use pain medication, she is getting prescription refill from her primary care she denies any side effects from it, Objective - Vital Signs Vital signs: Vital Signs Temp Pulse 66 08/08/19 14:33 Resp 18 08/08/19 14:33 BP 112/73 08/08/19 14:33 Pulse Ox 95 08/08/19 14:33 Intake & Output 08/07/19 08/08/19 08/08/19 18:59 06:59 18:59 Weight 86.183 kg - Exam Physical Examinations : -Constitutiona : Cooperative , not in acute distress . -HEENT : nech : supple , no Lymphadenopathy , normal thyroid size . : eyes : no ptosis , no icterus, no photophobia . - neurologic : Cranial nerve II to XII intact , no focal neurological deffecit . -psychatric : alert , oriented X 3 , appropriate affect , intact judgment and insight . -Lymphatic : no Lymphadenopathy . - musculoskeltal : Lumber spine moter stegnth lower extremities ,thigh and legs 5/5 Right side , 5/5 Left side Normal and sensation in the lower extremity bilaterally deep tendon reflexes : normal Knee Jerk , normal ankle Jerk lumber facet Loading Test = negative bilaterally Range of motion of the lumbar spine Flexion 30 degrees, extension 10 degrees strait leg raising test = negative bilaterally Fabere test= negative bilaterally Sever tenderness over the trochanteric bursa Left [place] [facility] [place] left side L4 5 disc herniation, and L5-S1 disc desiccation Assessment and Plan Plan: Assessment and plan=1-lumbar radiculopathy. 2-lumbar herniated disc disease. 3-lumbar degenerative disc disease. 4-left trochanteric bursitis. Patient could benefit from lumbar epidural steroid injection at L4 5 levels (left paramedian approach ), and at the same time she could benefit from a left trochanteric bursa steroid injection both procedures can be done at the same time. Patient should continue her pain medication Oakley 10/325 and baclofen as prescribed by her primary care Time with Patient: Less than 30 PQRS Measure Charge Sheet Measure #130: Documentation of Current Meds in Medical Chart: Patient's medications documented in chart Measure #226: Tobacco Use: Screen & Cessation Intervention: Pt not a tobacco user Measure #111: Pneumonia Vaccination: Pneumococcal vaccine NOT administered or previously given Measure #47: Advance Care Plan: Advance care planning discussed & documented, plan or surrogate given Measure #412: Opioid Treatment Agreement: No documentation of signed opioid treatment agreement Measure #408: Opioid Therapy Follow-up Evaluation: Patient had NO f/u eval minimum every 3 months during opioid therapy Measure #317: Preventitive Care & Scrn High Bld Press & F/U: Normal blood pressure, f/u not required Measure #128: Body Mass Index (BMI) Screening & Follow-up: BMI documented ABOVE normal parameters - f/u documented Measure #131: Pain Assessment & Follow-up: Pain positive & plan documented, Follow-up scheduled Measure #431: Unhealthy Alcohol Use Preventative Care & Scrn: Patient not identified as an unhealthy alcohol user PQRS Narrative: Smoking Status Former smoker Blood Pressure 112/73 Pain Intensity [Lower Back] 5 Scale Used Numeric (1 - 10) Hx Alcohol Use (MH) Yes: rare Home Medications: Ambulatory Orders Baclofen [Lioresal] 10 mg PO QAM 07/13/17 Cyanocobalamin [Vitamin B-12 Injection] 1,000 mcg SQ QMONTH 07/13/17 Gabapentin [Neurontin] 300 mg PO DAILY 07/13/17 Hydrocodone/Acetaminophen [Hydrocodon-Acetaminophn 10-325] 1 each PO BID PRN 07/13/17 Levothyroxine Sodium [Synthroid] 125 mcg PO DAILY 07/13/17 Propranolol HCl [Propranolol HCl ER] 120 mg PO DAILY 07/13/17 Cholecalciferol (Vitamin D3) [Vitamin D3] 2,000 unit PO DAILY 11/27/17 Magnesium Citrate 250 mg PO DAILY 11/27/17 Baclofen [Lioresal] 20 mg PO HS 05/07/19 Biotin 5,000 mcg PO DAILY 10/16/18 Fluticasone/Salmeterol [Advair 250-50 Diskus] 2 puff PO BID PRN 10/16/18 Galcanezumab-Gnlm [Emgality] 120 mg SQ Q30D 10/16/18 Montelukast [Singulair] 10 mg PO DAILY 10/16/18 Ezetimibe [Zetia] 10 mg PO HS 08/07/19 Multivit with Calcium,Iron,Min [Women's Multivitamin] 1 each PO DAILY 08/07/19 Rizatriptan Benzoate [Rizatriptan] 10 mg PO DIRECTED PRN 08/07/19 Vit C/E/Zn/Coppr/Lutein/Zeaxan [Preservision Areds 2 Softgel] 1 each PO DAILY 08/07/19 Controlled Substance Measures - Controlled Substance Measures Is patient prescribed a controlled substance at discharge?: No
== END | disposition home or self-care (01) ==
LOC: PNWHC3 13:46
PROVIDERS: ATTEND Specialist
DX: M51.16 Intervertebral disc disorders with radiculopathy, lumbar region (principal); M70.62 Trochanteric bursitis, left hip; Z87.891 Personal history of nicotine dependence; Z79.899 Other long term (current) drug therapy
CPT/HCPCS: 99211

== ENCOUNTER → 2019-11-15 | Outpatient (CLI) | payer MEDICARE | END | disposition home or self-care (01) | LOC: LABWHC1 10:17 | PROVIDERS: ATTEND Internal Medicine | DX: Z11.59 Encounter for screening for other viral diseases (principal) ==

== ENCOUNTER 2019-11-19 06:53 | Day surgery (SDC) | payer MEDICARE ==
[2019-11-18 12:29] VITALS: BMI 32.8
[2019-11-19 07:18] VITALS: RESP 16; TEMP 98
[2019-11-19 07:18] LABS: Glucose,Whole Blood 92 mg/dL (75-99)
[2019-11-19] MEDS ORDERED: LACTATED RINGERS 1,000 ML IV ONE (07:18)
[2019-11-19] MEDS ORDERED: LIDOCAINE 1% (10MG/ML) FOR IV START INTRADERMA ONE (07:19)
[2019-11-19] MEDS ORDERED: fentaNYL (PF) 50 MCG/ML 2 ML AMP ONE (07:35)
[2019-11-19] MEDS ORDERED: TRIAMCINOLONE ACETONIDE 40 MG/ML 1 ML VIAL ONE (07:35)
[2019-11-19] MEDS ORDERED: MIDAZOLAM 2 MG/2 ML VIAL ONE (07:35)
[2019-11-19] MEDS ORDERED: IOPAMIDOL M200 10 ML VIAL ONE (07:35)
--- NOTE | 2019-11-19 07:51 | P.PCN ---
Date of Procedure: 11/19/19 Description of Procedure: PREOPERATIVE DIAGNOSIS: Herniated nucleus pulposus, left lumbar radiculopathy POSTOPERATIVE DIAGNOSIS: Same PROCEDURE Lumbar epidural steroid injection under fluoroscopic guidance at the L4-5 level. ANESTHESIA: Local with 1% lidocaine 3 ml and IV sedation with Versed 2 mg and 50mcq Fentanyl EBL: Minimal PROCEDURE INDICATION: The patient with low back pain and radiculitis symptoms unresponsive to conservative treatment. Fluoroscopy was used to optimize visualization of the needle placement and to maximize safety. PROCEDURE DESCRIPTION / TECHNIQUE: The patient was seen and identified in the preoperative area. Risks, benefits, complications including but not limited to infections ,bleeding ,allergic reaction to the medications ,nerve damage and not complete pain relief , and alternatives were discussed with the patient. The patient agreed to proceed with the procedure and signed the consent. IV was started, and vital signs were stable. Patient was taken to the OR and time out was completed. The patient was placed in the prone position on procedure table and a pillow was placed under the abdomen to reduce lumbar lordosis. The lumbosacral area was prepped and draped in the usual sterile fashion.ere closely monitored during the procedure. C onscious sedation was used during the procedure to decrease patient's anxiety. Vital signs was monitered during the entire procedure. Using anterior-posterior fluoroscopy, the L4-L5 interlaminar space was identified and the skin over this site was marked and then infiltrated with 1% lidocaine subcutaneously. Subsequently, a 20-gauge Tuohy epidural needle was inserted and advanced toward the epidural space using the Loss of resistance technique and guided by AP and lateral fluoroscopy. The correct needle position in the epidural space was verified with the injection of contrast and observing an excellent epidurogram with the epidural spread of the dye, after negative aspiration for blood and CSF and in the absence of paresthesias. Again after negative aspiration, a 4 ml mixture containing 40 mg of Kenalog, 1ml, and 3 ml PFNS was injected and a washout of epidurogram was seen. Needle was withdrawn intact, skin was cleansed, and bandages were applied. COMPLICATIONS: None DISPOSITION / PLANS: The patient was placed in a supine position and transferred to the recovery area in a stable condition for observation. There was no evidence of lower extremity motor or sensory deficit after the procedure. Patient was discharged from the recovery room after meeting discharge criteria. Home discharge instructions were given to the patient by the staff. The patient was reexamined prior to discharge. Patient will return for 2nd injection in 4 weeks.
[2019-11-19] MEDS ORDERED: LACTATED RINGERS 1,000 ML IV SCH (08:00)
[2019-11-19 08:12] VITALS: BP 133/73; PULSE 67
--- NOTE | 2019-11-19 14:29 | FL ---
Fluoroscopy HISTORY: Pain 8 seconds fluoroscopy time supplied to the referring clinician. 1 intraoperative C-arm images docume nt the procedure. See dictated report from anesthesia.
--- NOTE | 2019-12-03 08:25 | P.GSHP ---
History of Present Illness H&P Date: 11/19/19 Chief Complaint: Low back pain presents for LESI at L4-5. Hx of radicular pain into b/l lower extremities. Has had good relief with previous LESI. +SLR L>R + facet loading CVS: RRR Resp: Non labored, no wheeze Past Medical History Past Medical History: Asthma, Cancer, Diabetes Mellitus, GERD/Reflux, Musculoskeletal Disorder, Pneumonia, Thyroid Disorder Additional Past Medical History / Comment(s): Hand tremors (takes propranolol) , pneumonia 2017,. Chronic anemia, uterine cancer with surgery, constipation, states Dr testing kidneys., lower back pain with radiation to left leg. History of Any Multi-Drug Resistant Organisms: None Reported Past Surgical History: Appendectomy, Breast Surgery, Hysterectomy, Tonsillectomy Additional Past Surgical History / Comment(s): Bunionectomy right foot. Breast reduction, pain procedures Past Anesthesia/Blood Transfusion Reactions: No Reported Reaction Smoking Status: Former smoker - Past Family History Sister(s) Family Medical History: Cancer, Pulmonary Embolus Medications and Allergies Home Medications Medication Instructions Recorded Confirmed Type Baclofen [Lioresal] 10 mg PO QAM 07/13/17 12/02/19 History Cyanocobalamin [Vitamin B-12 1,000 mcg SQ QMONTH 07/13/17 12/03/19 History Injection] Gabapentin [Neurontin] 300 mg PO BID 07/13/17 12/02/19 History Hydrocodone/Acetaminophen 1 each PO BID PRN 07/13/17 12/02/19 History [Hydrocodon-Acetaminophn 10-325] Levothyroxine Sodium [Synthroid] 125 mcg PO DAILY 07/13/17 12/02/19 History Propranolol HCl [Propranolol HCl 120 mg PO DAILY 07/13/17 12/02/19 History ER] Cholecalciferol (Vitamin D3) 2,000 unit PO DAILY 11/27/17 12/02/19 History [Vitamin D3] Magnesium Citrate 250 mg PO DAILY 11/27/17 12/02/19 History Baclofen [Lioresal] 20 mg PO HS 10/16/18 12/03/19 History Biotin 5,000 mcg PO DAILY 10/16/18 12/02/19 History Fluticasone/Salmeterol [Advair 2 puff PO BID PRN 10/16/18 12/03/19 History 250-50 Diskus] Galcanezumab-Gnlm [Emgality] 120 mg SQ Q30D 10/16/18 12/03/19 History Montelukast [Singulair] 10 mg PO DAILY 10/16/18 12/02/19 History Ezetimibe [Zetia] 10 mg PO HS 08/07/19 12/02/19 History Multivit with Calcium,Iron,Min 1 each PO DAILY 08/07/19 12/02/19 History [Women's Multivitamin] Rizatriptan Benzoate [Rizatriptan] 10 mg PO HS PRN 08/07/19 12/03/19 History Vit C/E/Zn/Coppr/Lutein/Zeaxan 1 each PO DAILY 08/07/19 12/03/19 History [Preservision Areds 2 Softgel] Linagliptin [Tradjenta] 5 mg PO DAILY 12/02/19 12/03/19 History Allergies Allergy/AdvReac Type Severity Reaction Status Date / Time azithromycin Allergy Nausea & Verified 12/02/19 10:41 Vomiting codeine Allergy Nausea & Verified 12/02/19 10:41 Vomiting Gglrqve-Ram-Ycr Reductase Allergy LEG PAIN Verified 12/02/19 10:41 Inhibitor Sulfa (Sulfonamide Allergy Unknown Verified 12/02/19 10:41 Antibiotics) Surgical - Exam Vital Signs Temp Pulse Resp BP Pulse Ox 98.0 F 65 16 150/70 96 11/19/19 07:07 11/19/19 07:07 11/19/19 07:07 11/19/19 07:07 11/19/19 07:07
== END 2019-11-19 08:31 | disposition home or self-care (01) ==
LOC: ORPAIN 06:53
PROVIDERS: ATTEND Anesthesiology
DX: M51.16 Intervertebral disc disorders with radiculopathy, lumbar region (principal); J45.909 Unspecified asthma, uncomplicated; E11.9 Type 2 diabetes mellitus without complications; K21.9 Gastro-esophageal reflux disease without esophagitis; E07.9 Disorder of thyroid, unspecified; R25.1 Tremor, unspecified; D64.9 Anemia, unspecified; Z98.890 Other specified postprocedural states; Z85.42 Personal history of malignant neoplasm of other parts of uterus; Z87.39 Personal history of other diseases of the musculoskeletal system and connective tissue; Z87.01 Personal history of pneumonia (recurrent); Z79.899 Other long term (current) drug therapy; Z87.19 Personal history of other diseases of the digestive system; Z90.49 Acquired absence of other specified parts of digestive tract; Z90.710 Acquired absence of both cervix and uterus; Z90.89 Acquired absence of other organs; Z87.891 Personal history of nicotine dependence; Z79.890 Hormone replacement therapy; Z79.51 Long term (current) use of inhaled steroids; Z79.84 Long term (current) use of oral hypoglycemic drugs; Z88.1 Allergy status to other antibiotic agents; Z88.5 Allergy status to narcotic agent; Z88.8 Allergy status to other drugs, medicaments and biological substances; Z88.2 Allergy status to sulfonamides; Z80.9 Family history of malignant neoplasm, unspecified; Z82.49 Family history of ischemic heart disease and other diseases of the circulatory system
CPT/HCPCS: 62323; J2250; J3301; J3010; Q9966

== ENCOUNTER 2019-12-03 07:23 | Day surgery (SDC) | payer MEDICARE ==
[2019-12-02 11:10] VITALS: BMI 32.8
[2019-12-03] MEDS ORDERED: LACTATED RINGERS 1,000 ML IV ONE (07:56)
[2019-12-03] MEDS ORDERED: LIDOCAINE 1% (10MG/ML) FOR IV START INTRADERMA ONE (07:57)
[2019-12-03] MEDS ORDERED: IOPAMIDOL M200 10 ML VIAL ONE (07:58)
[2019-12-03] MEDS ORDERED: methylPREDNISolone ACETATE 40 MG/ML 1 ML VIAL ONE (07:58)
[2019-12-03] MEDS ORDERED: fentaNYL (PF) 50 MCG/ML 2 ML AMP ONE (07:58)
[2019-12-03] MEDS ORDERED: MIDAZOLAM 2 MG/2 ML VIAL ONE (07:58)
[2019-12-03 08:07] VITALS: TEMP 97.3
--- NOTE | 2019-12-03 08:14 | P.PCN ---
Date of Procedure: 12/03/19 Procedure(s) Performed: PREOPERATIVE DIAGNOSIS: 1- Lumbar herniated Disc Diseases 2-Lumbar Radiculopathy POSTOPERATIVE DIAGNOSIS: Same as preop diagnosis PROCEDURE 1. Lumbar epidural steroid injection under fluoroscopic guidance at the L4-5 level. (Fluoroscopy imaging was available in radiology department) 2. Lumbar epidurogram. ANESTHESIA: Local with 1% lidocaine 3 ml and , moderate sedation with intravenous Versed 2 mg ,and fentanyle 50 Mcg EBL: Minimal PROCEDURE INDICATION: The patient with low back pain and radiculitis symptoms unresponsive to conservative treatment. Fluoroscopy was used to optimize visualization of the needle placement and to maximize safety. PROCEDURE DESCRIPTION / TECHNIQUE: The patient was seen and identified in the preoperative area. Risks, benefits, complications including but not limited to infections ,bleeding ,allergic reaction to the medications ,nerve damage and not complete pain releife , and alternatives were discussed with the patient. The patient agreed to proceed with the procedure and signed the consent. IV was started, and vital signs were stable. Patient was taken to the OR and time out was completed. The patient was placed in the prone position on procedure table and a pillow was placed under the a bdomen to reduce lumbar lordosis. The lumbosacral area was prepped and draped in the usual sterile fashion.ere closely monitored during the procedure. Conscious sedation was used during the procedure to decrease patients anxiety. Vital signs was monitered during the entire procedure. Using anterior-posterior fluoroscopy, the L4-5 interlaminar space was identified and the skin over this site was marked and then infiltrated with 1% lidocaine subcutaneously. Subsequently, a 20-gauge Tuohy epidural needle was inserted and advanced toward the epidural space using the ``Loss of resistance technique and guided by AP and lateral fluoroscopy. The correct needle position in the epidural space was verified with the injection of 2 mL of the water soluble contrast dye Isovue 200 contrast and observing an excellent epidurogram with the epidural spread of the dye, after negative aspiration for blood and CSF and in the absence of paresthesias. Again after negative aspiration, a 6 ml mixture containing 40 mg of Depo-medrol , and 2 ml of preservative free Normal Saline, and 2 ml of preservative free lidocaine 1% solution was injected and a washout of epidurogram was seen. Needle was withdrawn intact, skin was cleansed, and bandages were applied. COMPLICATIONS: None DISPOSITION / PLANS: The patient was placed in a supine position and transferred to the recovery area in a stable condition for observation. There was no evidence of lower extremity motor or sensory deficit after the procedure. Patient was discharged from the recovery room after meeting discharge criteria. Home discharge instructions were given to the patient by the staff. The patient was reexamined prior to discharge. The patient will schedule a follow up in the clinic in 2-4 weeks.
[2019-12-03] MEDS ORDERED: IV FLUID CONTINUATION 1,000 ML IV ONE (08:20)
[2019-12-03 08:24] LABS: Glucose,Whole Blood 92 mg/dL (75-99)
[2019-12-03 08:25] VITALS: RESP 18
[2019-12-03] MEDS ORDERED: LACTATED RINGERS 1,000 ML IV SCH (08:32)
[2019-12-03 08:40] VITALS: BP 112/77; PULSE 78
--- NOTE | 2019-12-03 08:54 | FL ---
EXAMINATION TYPE: FL guided pain mgmt statistic DATE OF EXAM: 12/03/2019 HISTORY: Fluoroscopy time 6 seconds of fluoroscopy provided. IMPRESSION: 1. Fluoroscopy time.
== END 2019-12-03 08:50 | disposition home or self-care (01) ==
LOC: ORPAIN 07:23
PROVIDERS: ATTEND Specialist
DX: M51.16 Intervertebral disc disorders with radiculopathy, lumbar region (principal); E11.9 Type 2 diabetes mellitus without complications; J45.909 Unspecified asthma, uncomplicated; R35.1 Nocturia; Z88.1 Allergy status to other antibiotic agents; Z88.5 Allergy status to narcotic agent; Z88.2 Allergy status to sulfonamides; Z88.8 Allergy status to other drugs, medicaments and biological substances
CPT/HCPCS: 62323; J2250; J1030; J3010; Q9966

== ENCOUNTER → 2019-12-19 | Outpatient (CLI) | payer MEDICARE ==
--- NOTE | 2019-12-19 14:34 | P.PAINPG ---
Subjective Progress Note Date: 12/19/19 This is 69 years old female, with a history of chronic severe low back pain, and she is diagnosed with lumbar herniated disc disease lumbar radiculopathy and lumbar disc degeneration, status post lumbar epidural steroid injections 2, she reported that her low back pain improved but she is continue to have severe left lower extremity pain with numbness and tingling sensation, the pain is constant and increases with any activity, and interfering with the quality of life, she continued to use pain medication, she is getting prescription refill from her primary care she denies any side effects from it, she denies any fever or night sweats which she denies any change in the bowel movement or urination she denies any motor or sensory deficit Objective - Vital Signs Vital signs: Vital Signs Temp Pulse 83 12/19/19 14:06 Resp 18 12/19/19 14:06 BP 141/70 12/19/19 14:06 Pulse Ox 95 12/19/19 14:06 Intake & Output 12/18/19 12/19/19 12/19/19 18:59 06:59 18:59 Weight 83.915 kg - Exam -Constitutiona : Cooperative , not in acute distress . -HEENT : nech : supple , no Lymphadenopathy , normal thyroid size . : eyes : no ptosis , no icterus, no photophobia . - neurologic : Cranial nerve II to XII intact , no focal neurological deffecit . -psychatric : alert , oriented X 3 , appropriate affect , intact judgment and insight . -Lymphatic : no Lymphadenopathy . - musculoskeltal : Lumber spine moter stegnth lower extremities ,thigh and legs 5/5 Right side , 5/5 Left side Normal and sensation in the lower extremity bilaterally deep tendon reflexes : normal Knee Jerk , normal ankle Jerk lumber facet Loading Test = negative bilaterally Range of motion of the lumbar spine Flexion 30 degrees, extension 10 degrees strait leg raising test = negative bilaterally Fabere test= negative bilaterally Sever tenderness over the trochanteric bursa Left sides MRI of the lumbar spine done at [facility] in 2017, left side L4 5 disc herniation, and L5-S1 disc desiccation Assessment and Plan Plan: Assessment and plan=1-lumbar radiculopathy. 2-lumbar herniated disc disease. 3-lumbar degenerative disc disease. Patient could benefit from left-sided transforaminal epidural steroid injection at L4 5 and L5-S1 under fluoroscopy If patient had no improvement after the injection then we should consider doing MRI of the lumbar spine and possible referral for neurosurgery Time with Patient: Less than 30 PQRS Measure Charge Sheet Measure #130: Documentation of Current Meds in Medical Chart: Patient's medications documented in chart Measure #226: Tobacco Use: Screen & Cessation Intervention: Pt not a tobacco user Measure #111: Pneumonia Vaccination: Pneumococcal vaccine administered or previously received Measure #47: Advance Care Plan: Advance care planning discussed & documented, pt chose/unable to give Measure #412: Opioid Treatment Agreement: No documentation of signed opioid treatment agreement Measure #408: Opioid Therapy Follow-up Evaluation: Patient had NO f/u eval minimum every 3 months during opioid therapy Measure #317: Preventitive Care & Scrn High Bld Press & F/U: Pre-hypertensive or hypertensive BP documented, pt will f/u with PCP Measure #128: Body Mass Index (BMI) Screening & Follow-up: BMI documented ABOVE normal parameters - f/u documented Measure #131: Pain Assessment & Follow-up: Pain positive & plan documented, Follow-up scheduled Measure #431: Unhealthy Alcohol Use Preventative Care & Scrn: Patient not identified as an unhealthy alcohol user PQRS Narrative: Smoking Status Former smoker Blood Pressure 141/70 Pain Intensity [Lower Back] 2 Scale Used Numeric (1 - 10) Hx Alcohol Use (MH) Yes: rare Home Medications: Ambulatory Orders Baclofen [Lioresal] 10 mg PO QAM 07/13/17 Cyanocobalamin [Vitamin B-12 Injection] 1,000 mcg SQ QMONTH 07/13/17 Gabapentin [Neurontin] 300 mg PO BID 07/13/17 Hydrocodone/Acetaminophen [Hydrocodon-Acetaminophn 10-325] 1 each PO BID PRN 07/13/17 Levothyroxine Sodium [Synthroid] 125 mcg PO DAILY 07/13/17 Propranolol HCl [Propranolol HCl ER] 120 mg PO DAILY 07/13/17 Cholecalciferol (Vitamin D3) [Vitamin D3] 2,000 unit PO DAILY 11/27/17 Magnesium Citrate 250 mg PO DAILY 11/27/17 Baclofen [Lioresal] 20 mg PO HS 10/16/18 Biotin 5,000 mcg PO DAILY 10/16/18 Fluticasone/Salmeterol [Advair 250-50 Diskus] 2 puff PO BID PRN 10/16/18 Galcanezumab-Gnlm [Emgality] 120 mg SQ Q30D 10/16/18 Montelukast [Singulair] 10 mg PO DAILY 10/16/18 Ezetimibe [Zetia] 10 mg PO HS 08/07/19 Multivit with Calcium,Iron,Min [Women's Multivitamin] 1 each PO DAILY 08/07/19 Rizatriptan Benzoate [Rizatriptan] 10 mg PO HS PRN 08/07/19 Vit C/E/Zn/Coppr/Lutein/Zeaxan [Preservision Areds 2 Softgel] 1 each PO DAILY 08/07/19 Linagliptin [Tradjenta] 5 mg PO DAILY 12/02/19 Controlled Substance Measures - Controlled Substance Measures Is patient prescribed a controlled substance at discharge?: No
[2019-12-20 10:13] VITALS: BP 141/70; PULSE 83; RESP 18
== END | disposition home or self-care (01) ==
LOC: PNWHC3 13:44
PROVIDERS: ATTEND Specialist
DX: G89.29 Other chronic pain (principal); M51.16 Intervertebral disc disorders with radiculopathy, lumbar region; Z87.891 Personal history of nicotine dependence; Z79.899 Other long term (current) drug therapy
CPT/HCPCS: 99211

== ENCOUNTER 2020-01-02 07:17 | Day surgery (SDC) | payer MEDICARE ==
[2020-01-01 10:41] VITALS: BMI 32.8
[~2020-01-02 07:17] MED LIST changes: -IV FLUID CONTINUATION 1,000 ML IV ONE; -LIDOCAINE 1% 20 ML VIAL (10MG/ML) FOR IV START INTRADERMA ONE
[2020-01-02 07:48] VITALS: RESP 16; TEMP 98
[2020-01-02 08:02] LABS: Glucose,Whole Blood 107 mg/dL (75-99)
[2020-01-02] MEDS ORDERED: LIDOCAINE 1% (10MG/ML) FOR IV START INTRADERMA ONE (08:02)
[2020-01-02] MEDS ORDERED: fentaNYL (PF) 50 MCG/ML 2 ML AMP ONE (08:30)
[2020-01-02] MEDS ORDERED: MIDAZOLAM 2 MG/2 ML VIAL ONE (08:30)
[2020-01-02] MEDS ORDERED: IOPAMIDOL M200 10 ML VIAL ONE (08:30)
[2020-01-02] MEDS ORDERED: DEXAMETHASONE SOD PHOSPHATE 10 MG/ML 1 ML VIAL ONE (08:30)
--- NOTE | 2020-01-02 09:16 | P.PCN ---
Date of Procedure: 01/02/20 Procedure(s) Performed: PREOPERATIVE DIAGNOSIS: Lumbar radiculopathy POSTOPERATIVE DIAGNOSIS: Lumbar radiculopathy Attending physician: Adamaris Laurent M.D. PROCEDURE 1. Transforaminal epidural steroid injection under fluoroscopic guidance L4-5 and L5-S1 level, left side 2. Lumbar epidurogram ANESTHESIA: Local with 1% lidocaine 3 ml ; IV sedation with Versed and fentanyl , sedation time 22 minutes PROCEDURE INDICATION: The patient with low back pain and radiculopathy symptoms unresponsive to conservative treatment. Fluoroscopy was used for the procedure and fluoroscopic images were saved to the radiology portion of patient's chart. PROCEDURE DESCRIPTION / TECHNIQUE: The patient was seen and identified in the preoperative area. Risks, benefits, complications, and alternatives were discussed with the patient. The patient agreed to proceed with the procedure and signed the consent. IV was started, and vital signs were stable. Patient was taken to the OR and time out was completed. The patient was placed in the prone position on procedure table and a pillow was placed under the abdo men to reduce lumbar lordosis. The lumbosacral area was prepped and draped in the usual sterile fashion. Vital signs were closely monitored during the procedure. Conscious sedation was used. Using oblique fluoroscopy, the chin of the ``[place] dog and the skin and deeper tissues just below was localized with 1% lidocaine. Subsequently, a 22- gauge 3.5-inch spinal needle was advanced under a tunneled view fluoroscopic guidance just underneath the chin of the ``[place] dog at above-mentioned levels . Under lateral fluoroscopy, the needle was then advanced to the posterior border of the foramen. After negative aspiration of CSF and blood and with no paresthesias, 1 mL of Isovue-200 contrast dye was injected under live fluoroscopy and there was no evidence of intravascular injection. The injectate solution consisting of 7.5 mg of dexamethasone with 1 mL of 1% lidocaine was then delivered at each spot. A total of 15 mg of dexamethasone was used. The needle was withdrawn intact. At the end of the procedure, skin was cleansed, and bandages were applied. COMPLICATIONS: None COMMENTS: DISPOSITION / PLANS: The patient was placed in a supine position and transferred to the recovery area in a stable condition for observation. There was no evidence of lower extremity motor or sensory deficit after the procedure. Patient was discharged from the recovery room after meeting discharge criteria. Home discharge instructions were given to the patient by the staff. The patient will follow up in clinic in 2-4 weeks.
[2020-01-02 09:17] VITALS: BP 122/59; PULSE 67
[2020-01-02] MEDS ORDERED: IV FLUID CONTINUATION 1,000 ML IV ONE (09:24)
--- NOTE | 2020-01-02 10:28 | FL ---
EXAMINATION TYPE: FL guided pain mgmt statistic DATE OF EXAM: 01/02/2020 CLINICAL HISTORY: Low back pain. TECHNIQUE: Fluoroscopy. COMPARISON: None. FINDINGS: Fluoroscopic guidance was provided during pain relief procedure performed by Dr. Laurent . A total of 26 seconds of fluoroscopic time was utilized during the procedure and 13 spot images are acq uired. Images acquired shows needle localization at several levels in the lower lumbar spine. IMPRESSION: As Above.
== END 2020-01-02 09:31 | disposition home or self-care (01) ==
LOC: ORPAIN 07:17
PROVIDERS: ATTEND Anesthesiology
DX: M54.16 Radiculopathy, lumbar region (principal); E11.9 Type 2 diabetes mellitus without complications; Z88.5 Allergy status to narcotic agent; Z88.8 Allergy status to other drugs, medicaments and biological substances; Z88.2 Allergy status to sulfonamides
CPT/HCPCS: 64483; 64484; J2250; J1100; J3010; Q9966; 99152

== ENCOUNTER → 2020-01-29 | Outpatient (CLI) | payer MEDICARE ==
[2020-01-29 11:05] VITALS: BP 137/78; PULSE 74; RESP 18; TEMP 98.1
--- NOTE | 2020-01-29 12:28 | P.PAINPG ---
Subjective Progress Note Date: 01/29/20 This is 69 years old female, with a history of chronic severe low back pain, and she is diagnosed with lumbar herniated disc disease lumbar radiculopathy and lumbar disc degeneration, status post lumbar epidural steroid injections 2, she reported that her low back pain improved but she is continue to have severe left lower extremity pain with numbness and tingling sensation On 01/01 we did left L4-5 and L5-S1 TFESI. She returns for followup today. She notes that she only had about 5% relief from L4-L5 and L5-S1 transforaminal epidural steroid injection on the left side. She noted that the entire procedure is very uncomfortable for her and she did not feel like she had adequate sedation. Pain is located in the low back radiating to the left leg on the lateral aspect down to the knee. Describes as burning and stabbing. No alleviating factors and occasionally some medication will help with the pain. Currently a 9 out of 10. the pain is constant and increases with any activity, and interfering with the quality of life, she continued to use pain medication, she is getting prescription refill from her primary care she denies any side effects from it, she denies any fever or night sweats which she denies any change in the bowel movement or urination she denies any motor or sensory deficit Objective - Exam -Constitutiona : Cooperative , not in acute distress . -HEENT : nech : supple , no Lymphadenopathy , normal thyroid size . : eyes : no ptosis , no icterus, no photophobia . - neurologic : Cranial nerve II to XII intact , no focal neurological deffecit . -psychatric : alert , oriented X 3 , appropriate affect , intact judgment and insight . -Lymphatic : no Lymphadenopathy . - musculoskeltal : Lumber spine moter stegnth lower extremities ,thigh and legs 5/5 Right side , 5/5 Left side Normal and sensation in the lower extremity bilaterally deep tendon reflexes : normal Knee Jerk , normal ankle Jerk lumber facet Loading Test = negative bilaterally Range of motion of the lumbar spine Flexion 30 degrees, extension 10 degrees strait leg raising test = negative bilaterally Fabere test= negative bilaterally Sever tenderness over the trochanteric bursa Left sides MRI of the lumbar spine done at [facility]= in 2017, left side L4 5 disc herniation, and L5-S1 disc desiccation Assessment and Plan Plan: Assessment and plan=1-lumbar radiculopathy. 2-lumbar herniated disc disease. 3-lumbar degenerative disc disease. At this point given the patient's pain referral pattern I do feel that the injections that were previously done warranted. However this did not help her at all. She does note that in the past epidurals that she had a L4-L5 interlaminar epidurals were more helpful than the most recent injections. Given our interventions are waning in efficacy have ordered a new MRI of her low back as well as referred her to neurosurgery. I also recommended that she discuss with her PCP to increase her gabapentin doesn't to 300 mg 3 times a day rather than twice. If neurosurgery does not choose to do any form of operation for her, or there is not any new findings on MRI, can discuss medication management versus trying to repeat her interlaminar epidural which caused more relief than the most recent transforaminal Smoking Status Former smoker Blood Pressure 141/70 Pain Intensity [Lower Back] 2 Scale Used Numeric (1 - 10) Hx Alcohol Use (MH) Yes: rare PQRS Measure Charge Sheet Measure #226: Tobacco Use: Screen & Cessation Intervention: Pt not a tobacco user Measure #111: Pneumonia Vaccination: Pneumococcal vaccine administered or previously received Measure #47: Advance Care Plan: Advance care planning discussed & documented, pt chose/unable to give Measure #317: Preventitive Care & Scrn High Bld Press & F/U: Pre-hypertensive or hypertensive BP documented, pt will f/u with PCP Measure #131: Pain Assessment & Follow-up: Pain positive & plan documented, Follow-up scheduled Measure #431: Unhealthy Alcohol Use Preventative Care & Scrn: Patient not identified as an unhealthy alcohol user PQRS Narrative: Smoking Status Former smoker Pain Intensity [Lower Back] 5 Scale Used Numeric (1 - 10) Hx Alcohol Use (MH) Yes: rare Home Medications: Ambulatory Orders Baclofen [Lioresal] 10 mg PO QAM 07/13/17 Cyanocobalamin [Vitamin B-12 Injection] 1,000 mcg SQ QMONTH 07/13/17 Gabapentin [Neurontin] 300 mg PO BID 07/13/17 Hydrocodone/Acetaminophen [Hydrocodon-Acetaminophn 10-325] 1 each PO BID PRN 07/13/17 Levothyroxine Sodium [Synthroid] 125 mcg PO DAILY 02/01/18 Propranolol HCl [Propranolol HCl ER] 120 mg PO DAILY 07/13/17 Cholecalciferol (Vitamin D3) [Vitamin D3] 2,000 unit PO DAILY 11/27/17 Magnesium Citrate 250 mg PO DAILY 11/27/17 Baclofen [Lioresal] 20 mg PO HS 10/16/18 Biotin 5,000 mcg PO DAILY 10/16/18 Fluticasone/Salmeterol [Advair 250-50 Diskus] 2 puff PO BID PRN 10/16/18 Galcanezumab-Gnlm [Emgality] 120 mg SQ Q30D 10/16/18 Montelukast [Singulair] 10 mg PO DAILY 10/16/18 Ezetimibe [Zetia] 10 mg PO HS 08/07/19 Multivit with Calcium,Iron,Min [Women's Multivitamin] 1 each PO DAILY 08/07/19 Rizatriptan Benzoate [Rizatriptan] 10 mg PO HS PRN 08/07/19 Vit C/E/Zn/Coppr/Lutein/Zeaxan [Preservision Areds 2 Softgel] 1 each PO DAILY 08/07/19 metFORMIN HCL [Glucophage] 500 mg PO DAILY 01/22/20 Controlled Substance Measures - Controlled Substance Measures Is patient prescribed a controlled substance at discharge?: No
== END | disposition home or self-care (01) ==
LOC: PNWHC3 10:34
PROVIDERS: ATTEND Anesthesiology
DX: M51.16 Intervertebral disc disorders with radiculopathy, lumbar region (principal); Z87.891 Personal history of nicotine dependence; Z79.899 Other long term (current) drug therapy; Z79.891 Long term (current) use of opiate analgesic; Z79.890 Hormone replacement therapy; Z79.51 Long term (current) use of inhaled steroids; Z79.84 Long term (current) use of oral hypoglycemic drugs
CPT/HCPCS: 99211

== ENCOUNTER → 2020-02-28 | Outpatient (CLI) | payer MEDICARE ==
--- NOTE | 2020-02-28 16:14 | MR ---
EXAMINATION TYPE: MR lumbar spine wo con DATE OF EXAM: 02/28/2020 COMPARISON: NONE HISTORY: Low back pain radiating to left leg per order.. TECHNIQUE: Multiplanar, multisequence imaging of the lumbar spine is performed without IV contrast. FINDINGS: Sagittal images of the lumbar spine show vertebral body heights and alignment to appear sat isfactory. Multilevel disc desiccation is present. This space heights fairly well maintained. The co nus medullaris is normal in position and signal ending inferior T12 level. Few small scattered andrade iomas for reference L3 level sagittal image 8. Axial images show the T12-L1 and L1-L2 levels to appear within normal limits. Axial images at L2-L3 level shows mild facet degenerative changes bilaterally. Axial images at L3-L4 level show mild/moderate facet degenerative changes and ligament flavum hypert rophy. Mild effacement posterior lateral thecal sac is present. Axial images at the L4-L5 level show mild/moderate facet degenerative changes bilaterally. Spinal can al is preserved. Axial images at the L5-S1 levels show [id number] left greater than right facet degenerative prema nges. Spinal canal is preserved. Bilateral neural foramina are patent. IMPRESSION: [id number] multilevel facet arthropathy mid to lower lumbar spine. No significant d isc herniation identified to account for patient's left-sided radiculopathy type symptoms however.
== END | disposition home or self-care (01) ==
LOC: RADMRIMAIN 15:00
PROVIDERS: ATTEND Anesthesiology
DX: M47.816 Spondylosis without myelopathy or radiculopathy, lumbar region (principal)
CPT/HCPCS: 72148

== ENCOUNTER → 2020-03-04 | Outpatient (CLI) | payer MEDICARE ==
[2020-03-04 10:20] VITALS: BP 134/84; PULSE 84; RESP 14; TEMP 98.3
--- NOTE | 2020-03-04 10:34 | P.PAINPG ---
Subjective Progress Note Date: 03/04/20 This is 69 years old female, with a history of chronic severe low back pain, and she is diagnosed with lumbar herniated disc disease lumbar radiculopathy and lumbar disc degeneration, status post lumbar epidural steroid injections 2, she reported that her low back pain improved but she is continue to have severe left lower extremity pain with numbness and tingling sensation On 01/01 we did left L4-5 and L5-S1 TFESI which only provided 5% relief. We had reccomended she follow up with neurosurgery as well as obtain a new MRI. We also discussed that she can increase her gabapentin with her PCP from 300 BID to 300 TID. She returns for followup today. Treatment today with MRI results in hand. MRI was relatively benign, showing mild to moderate multilevel facet arthropathy with no significant disc herniation to account for her left-sided radiculopathy. Pain is located primarily in the left groin radiating down the anterior thigh with occasional low back pain located over the left paraspinal muscles. Pain is described as sharp and stabbing with alleviating factors only being lumbar flexion. Currently a 7 out of 10. She also notes that she has some difficulty tying shoes and sleeping on her left side. He recently had her gabapentin increased to 600 mg twice a day. the pain is constant and increases with any activity, and interfering with the quality of life, she continued to use pain medication, she is getting prescription refill from her primary care she denies any side effects from it, she denies any fever or night sweats which she denies any change in the bowel movement or urination she denies any motor or sensory deficit Objective - Exam -Constitutiona : Cooperative , not in acute distress . -HEENT : nech : supple , no Lymphadenopathy , normal thyroid size . : eyes : no ptosis , no icterus, no photophobia . - neurologic : Cranial nerve II to XII intact , no focal neurological deffecit . -psychatric : alert , oriented X 3 , appropriate affect , intact judgment and insight . -Lymphatic : no Lymphadenopathy . - musculoskeltal : Lumber spine moter stegnth lower extremities ,thigh and legs 5/5 Right side , 5/5 Left side Normal and sensation in the lower extremity bilaterally deep tendon reflexes : normal Knee Jerk , normal ankle Jerk lumber facet Loading Test = negative bilaterally Range of motion of the lumbar spine Flexion 30 degrees, extension 10 degrees strait leg raising test = negative bilaterally Fabere test= positive on the left side Sever tenderness over the trochanteric bursa Left sides MRI of the lumbar spine done 02/2020 L3-L4 shows mild to moderate facet degenerative changes and ligament flavum hypertrophy. Mild effacement of the posterior lateral thecal sac is present. At L4-L5 there is mild to moderate facet degenerative changes bilaterally. Spinal canals preserved. At L5-S1 there is mild to moderate left greater than right facet degenerative changes. Spinal canals preserved. Bilateral foramina are intact. Assessment and Plan Plan: Assessment: 1. Trochanteric bursitis 2. Possible hip arthritis 3. Set degenerative disease Plan: 1. Explanation: Diagnoses, prognoses, and multiple treatment options including but not limited to physical therapy, interventional therapies, medication management and surgery were discussed with the patient and all questions were answered to the patient's satisfaction. 2. Investigations: Ordered a left hip x-ray to assess for hip osteoarthritis. 3. Counseling: The patient was counseled for 3 minutes on BODY MASS INDEX, EXERCISE. Specifically, the patient was instructed regarding the importance of weight control, and exercise in the context of both chronic pain and overall health. 4. Procedures: Schedule given that she has tenderness to palpation over the left greater trochanteric bursa area as well as difficulty sleeping on her left side, it is possible that some of her pain comes from this area. I also feel that some pain can be coming from her hip, so we will order hip x-rays. If the GT bursa injection does not work and there is osteoarthritis in the hip x-ray, we can do a hip injection in the future. If the hip x-rays unconvincing as an injection candidate, she does have some facet degenerative disease in the lumbar spine specifically L4 and L5 and L5-S1 which can be targeted for medial branch workup 5. Consultations: None 6. Medications: as per primary 7. Disposition: Her left GT bursa injection Smoking Status Former smoker Blood Pressure 141/70 Pain Intensity [Lower Back] 2 Scale Used Numeric (1 - 10) Hx Alcohol Use (MH) Yes: rare PQRS Measure Charge Sheet Measure #226: Tobacco Use: Screen & Cessation Intervention: Pt not a tobacco user Measure #111: Pneumonia Vaccination: Pneumococcal vaccine administered or previously received Measure #47: Advance Care Plan: Advance care planning discussed & documented, pt chose/unable to give Measure #317: Preventitive Care & Scrn High Bld Press & F/U: Pre-hypertensive or hypertensive BP documented, pt will f/u with PCP Measure #131: Pain Assessment & Follow-up: Pain positive & plan documented, Follow-up scheduled Measure #431: Unhealthy Alcohol Use Preventative Care & Scrn: Patient not identified as an unhealthy alcohol user PQRS Narrative: Smoking Status Former smoker Pain Intensity [Lower Back] 5 Scale Used Numeric (1 - 10) Hx Alcohol Use (MH) Yes: rare PQRS Measure Charge Sheet Measure #226: Tobacco Use: Screen & Cessation Intervention: Pt not a tobacco user Measure #111: Pneumonia Vaccination: Pneumococcal vaccine administered or previously received Measure #47: Advance Care Plan: Advance care planning discussed & documented, pt chose/unable to give Measure #131: Pain Assessment & Follow-up: Pain positive & plan documented Measure #431: Unhealthy Alcohol Use Preventative Care & Scrn: Documented medical reason(s) for not screening unhealthy alcohol use PQRS Narrative: Smoking Status Former smoker Pain Intensity [Lower Back] 6 Hx Alcohol Use (MH) Yes: rare Home Medications: Ambulatory Orders Baclofen [Lioresal] 10 mg PO QAM 07/13/17 Cyanocobalamin [Vitamin B-12 Injection] 1,000 mcg SQ QMONTH 07/13/17 Gabapentin [Neurontin] 600 mg PO BID 07/13/17 Levothyroxine Sodium [Synthroid] 125 mcg PO DAILY 07/13/17 Propranolol HCl [Propranolol HCl ER] 120 mg PO DAILY 07/13/17 Cholecalciferol (Vitamin D3) [Vitamin D3] 2,000 unit PO DAILY 11/27/17 Magnesium Citrate 250 mg PO DAILY 11/27/17 Baclofen [Lioresal] 20 mg PO HS 10/16/18 Biotin 5,000 mcg PO DAILY 10/16/18 Fluticasone/Salmeterol [Advair 250-50 Diskus] 2 puff PO BID PRN 10/16/18 Galcanezumab-Gnlm [Emgality] 120 mg SQ Q30D 10/16/18 Montelukast [Singulair] 10 mg PO DAILY 10/16/18 Ezetimibe [Zetia] 10 mg PO HS 08/07/19 Multivit with Calcium,Iron,Min [Women's Multivitamin] 1 each PO DAILY 08/07/19 Rizatriptan Benzoate [Rizatriptan] 10 mg PO HS PRN 08/07/19 Vit C/E/Zn/Coppr/Lutein/Zeaxan [Preservision Areds 2 Softgel] 1 each PO DAILY 08/07/19 metFORMIN HCL [Glucophage] 500 mg PO BID 01/22/20 Omeprazole 1 tab PO DAILY PRN 02/28/20 oxyCODONE-APAP 5-325MG [Percocet 5-325 mg] 1 tab PO BID 02/28/20 Controlled Substance Measures - Controlled Substance Measures Is patient prescribed a controlled substance at discharge?: No
== END | disposition home or self-care (01) ==
LOC: PNWHC3 09:53
PROVIDERS: ATTEND Anesthesiology
DX: G89.29 Other chronic pain (principal); M70.60 Trochanteric bursitis, unspecified hip; M47.819 Spondylosis without myelopathy or radiculopathy, site unspecified; Z87.891 Personal history of nicotine dependence; Z79.891 Long term (current) use of opiate analgesic; Z79.899 Other long term (current) drug therapy; Z79.890 Hormone replacement therapy; Z79.84 Long term (current) use of oral hypoglycemic drugs
CPT/HCPCS: 99211

== ENCOUNTER → 2020-03-10 | Outpatient (CLI) | payer MEDICARE ==
--- NOTE | 2020-03-10 13:11 | XR ---
Left hip HISTORY: M 46.1, pain 2 views of the left hip, no comparisons Bone mineralization and alignment are maintained. There may be minimal joint space loss. No fracture or dislocation. Minimal marginal spurring present at the femoral head. IMPRESSION: Mild osteoarthritic changes.
== END | disposition home or self-care (01) ==
LOC: RADXRMAIN 12:02
PROVIDERS: ATTEND Anesthesiology
DX: M16.12 Unilateral primary osteoarthritis, left hip (principal)
CPT/HCPCS: 73502

== ENCOUNTER 2020-03-19 07:28 | Day surgery (SDC) | payer MEDICARE ==
[2020-03-19 07:45] VITALS: TEMP 96.3
[2020-03-19 07:52] LABS: Glucose,Whole Blood 98 mg/dL (75-99)
[2020-03-19] MEDS ORDERED: fentaNYL (PF) 50 MCG/ML 2 ML AMP ONE (08:40)
[2020-03-19] MEDS ORDERED: MIDAZOLAM 2 MG/2 ML VIAL ONE (08:40)
[2020-03-19] MEDS ORDERED: methylPREDNISolone ACETATE 40 MG/ML 1 ML VIAL ONE (08:40)
[2020-03-19] MEDS ORDERED: ROPIVACAINE 5MG/ML 20ML VIAL ONE (08:40)
--- NOTE | 2020-03-19 08:52 | P.PCN ---
Date of Procedure: 03/19/20 Procedure(s) Performed: Pre OP diagnoses= left trochanteric bursitis . Postoperative diagnosis= left trochanteric bursitis. Operation= left trochanteric bursa steroid injection under fluoroscopy guidance.(The fluoroscopy images on file in Radiology department ) Anesthesia= moderate sedation with IV , Versed 2 mg , and fentanyl 50 micrograms and local infiltration with lidocaine 1% 2 mL . Complications= none . Description of the procedure= patient had history of severe low back pain and hip pain secondary to trochanteric bursitis for this reason patient was a good candidate to have bilateral trochanteric bursa steroid injection which hopefully it will help his pain, risks and benefits of the procedure including but not limited to risk of infection and bleeding and not complete pain relief and ALLERGIC reaction to medication discussed with the patient and the alternative also discussed with the patient and he agreed with the preceding taken to the operating room placed in prone position or standard monitors applied patient and after induction of anesthesia the back and the hip area prepped with chlorhexidine 3 times, and under sterile technique using 25-gauge needle for skin and subcutaneous tissue infiltration was first admitted the left trochanteric bursa injection at 22-gauge Quincke-type spinal needle advanced slowly under fluoroscopy and placed in the left trochanteric bursa needle placement confirmed with AP and lateral view and after appropriate needle placement confirmed under fluoroscopy 5 ML of Ropivacaine 0.5% mixed with 40 mg of Depo-Medrol injected after negative aspiration for heme and there was no CSF and there was no paresthesia during the injection and needle removed and a dressing applied , patient tolerated the procedure well without any complication and she will follow up with the pain clinic in a few weeks and patient discharged home in stable condition
[2020-03-19] MEDS ORDERED: IV FLUID CONTINUATION 1,000 ML IV ONE (08:54)
[2020-03-19 09:04] VITALS: RESP 16
[2020-03-19 09:11] VITALS: BP 108/73; PULSE 69
--- NOTE | 2020-03-19 10:00 | FL ---
EXAMINATION TYPE: FL guided pain mgmt statistic DATE OF EXAM: 03/19/2020 CLINICAL HISTORY: Right hip pain. TECHNIQUE: Fluoroscopy. COMPARISON: None. FINDINGS: Fluoroscopic guidance was provided during pain relief procedure performed by Dr. Do . A total of 3 seconds of fluoroscopic time was utilized during the procedure and single spot images are acquired. Single image acquired shows needle localization at greater trochanter level right hip . IMPRESSION: As Above.
== END 2020-03-19 09:18 | disposition home or self-care (01) ==
LOC: ORPAIN 07:28
PROVIDERS: ATTEND Specialist
DX: M70.62 Trochanteric bursitis, left hip (principal); E11.9 Type 2 diabetes mellitus without complications; Z88.2 Allergy status to sulfonamides; Z88.5 Allergy status to narcotic agent; Z88.1 Allergy status to other antibiotic agents; Z88.8 Allergy status to other drugs, medicaments and biological substances
CPT/HCPCS: 20610; J2250; J1030; J3010; J2795

== ENCOUNTER 2020-04-14 06:58 | Day surgery (SDC) | payer MEDICARE ==
[2020-04-13 10:38] VITALS: BMI 32.9
[2020-04-14 07:15] VITALS: TEMP 98
[2020-04-14] MEDS ORDERED: LIDOCAINE 1% (10MG/ML) FOR IV START INTRADERMA ONE (07:16)
[2020-04-14] MEDS ORDERED: LACTATED RINGERS 1,000 ML IV ONE (07:16)
[2020-04-14 07:23] LABS: Glucose,Whole Blood 98 mg/dL (75-99)
[2020-04-14] MEDS ORDERED: MIDAZOLAM 2 MG/2 ML VIAL ONE (08:04)
[2020-04-14] MEDS ORDERED: TRIAMCINOLONE ACETONIDE 40 MG/ML 1 ML VIAL ONE (08:04)
[2020-04-14] MEDS ORDERED: ROPIVACAINE 5MG/ML 20ML VIAL ONE (08:04)
[2020-04-14] MEDS ORDERED: IV FLUID CONTINUATION 700 ML IV ONE (08:12)
--- NOTE | 2020-04-14 08:14 | P.PCN ---
Date of Procedure: 04/14/20 Surgeon: Deangelo Mcginnis Pathology: none sent Condition: stable Disposition: PACU Description of Procedure: Pre OP diagnoses= left greater trochanteric bursitis . Postoperative diagnosis= left greater trochanteric bursitis. Operation= left trochanteric bursa steroid injection under fluoroscopy guidance. Anesthesia= IV sedation with Versed , fentanyl and local infiltration with lidocaine 1% 2 mL . Complications= none . Risks and benefits of the procedure including but not limited to risk of infection and bleeding and not complete pain relief and ALLERGIC reaction to medication discussed with the patient and the alternative also discussed with the patient and she agreed with proceding .Patient was taken to the operating room placed in supine position , standard monitors applied , the hip area was prepped with chlorhexidine , and under sterile technique using 25-gauge needle for skin and subcutaneous tissue infiltration and 22-gauge Quincke-type spinal needle advanced slowly under fluoroscopy to contact bone of the greater trochanter. Needle placement was confirmed with AP and lateral view . 4 ML of ropivacaine 0.5% mixed with 40 mg of Kenalog injected after negative aspiration . there was no paresthesia during the injection ,needle removed and a dressing applied.Patient tolerated the procedure well without any complication and she will follow up with the pain clinic in a few weeks P Patient discharged home in stable condition
[2020-04-14 08:33] VITALS: RESP 20
--- NOTE | 2020-04-14 08:41 | FL ---
Fluoroscopy HISTORY: Pain 7 seconds fluoroscopy time supplied to the referring clinician. 2 intraoperative C-arm images docume nt the procedure. See dictated report from anesthesia.
[2020-04-14 08:50] VITALS: BP 132/68; PULSE 70
== END 2020-04-14 08:45 | disposition home or self-care (01) ==
LOC: ORPAIN 06:58
PROVIDERS: ATTEND Anesthesiology
DX: M70.62 Trochanteric bursitis, left hip (principal); E11.9 Type 2 diabetes mellitus without complications; Z88.1 Allergy status to other antibiotic agents; Z88.8 Allergy status to other drugs, medicaments and biological substances; Z88.6 Allergy status to analgesic agent; Z87.19 Personal history of other diseases of the digestive system; Z90.710 Acquired absence of both cervix and uterus; Y93.9 Activity, unspecified
CPT/HCPCS: 20610; J2250; J3301; J2795

== ENCOUNTER → 2020-05-13 | Outpatient (CLI) | payer MEDICARE ==
[2020-05-13 10:19] VITALS: BP 152/73; PULSE 68; RESP 16; TEMP 97.7
--- NOTE | 2020-05-13 10:37 | P.PAINPG ---
Subjective Progress Note Date: 05/13/20 This is 69 years old female, with a history of chronic severe low back pain, and she is diagnosed with lumbar herniated disc disease lumbar radiculopathy and lumbar disc degeneration, status post lumbar epidural steroid injections 2, she reported that her low back pain improved but she is continue to have severe left lower extremity pain with numbness and tingling sensation On 01/01 we did left L4-5 and L5-S1 TFESI which only provided 5% relief. We had reccomended she follow up with neurosurgery as well as obtain a new MRI. New MRI was a relatively benign showing mild to moderate multilevel facet arthropathy with no significant disc herniation to account for left-sided radicular pain. We also increased her gabapentin to 300 mg 3 times a day in the past. Since then she has had 2 left greater trochanteric bursa injections. She returns for followup today. She reports that her pain is almost a 0-10 today. She is very happy with the recent injections. In general her pain is located in the left groin radiating on the anterior thigh described as sharp and stabbing. However she is not feeling any pain today. Did note that she had her recent flareup of her present shingles which affected her eyes as well as her mouth. She is currently recovering from that and is wondering if steroids at anything to do with it. the pain is constant and increases with any activity, and interfering with the quality of life, she continued to use pain medication, she is getting prescription refill from her primary care she denies any side effects from it, she denies any fever or night sweats which she denies any change in the bowel movement or urination she denies any motor or sensory deficit Objective - Exam -Constitutiona : Cooperative , not in acute distress . -HEENT : nech : supple , no Lymphadenopathy , normal thyroid size . : eyes : no ptosis , no icterus, no photophobia . - neurologic : Cranial nerve II to XII intact , no focal neurological deffecit . -psychatric : alert , oriented X 3 , appropriate affect , intact judgment and insight . -Lymphatic : no Lymphadenopathy . - musculoskeltal : Lumber spine moter stegnth lower extremities ,thigh and legs 5/5 Right side , 5/5 Left side Normal and sensation in the lower extremity bilaterally deep tendon reflexes : normal Knee Jerk , normal ankle Jerk lumber facet Loading Test = negative bilaterally Range of motion of the lumbar spine Flexion 30 degrees, extension 10 degrees strait leg raising test = negative bilaterally MRI of the lumbar spine done 02/2020 L3-L4 shows mild to moderate facet degenerative changes and ligament flavum hypertrophy. Mild effacement of the posterior lateral thecal sac is present. At L4-L5 there is mild to moderate facet degenerative changes bilaterally. Spinal canals preserved. At L5-S1 there is mild to moderate left greater than right facet degenerative changes. Spinal canals preserved. Bilateral foramina are intact. Assessment and Plan Plan: Assessment: 1. Trochanteric bursitis 2. Possible hip arthritis 3. Set degenerative disease Plan: 1. Explanation: Diagnoses, prognoses, and multiple treatment options including but not limited to physical therapy, interventional therapies, medication management and surgery were discussed with the patient and all questions were answered to the patient's satisfaction. 2. Investigations: none 3. Counseling: The patient was counseled for 3 minutes on BODY MASS INDEX, EXERCISE. Specifically, the patient was instructed regarding the importance of weight control, and exercise in the context of both chronic pain and overall health. 4. Procedures: Scheduled greater trochanteric bursa injection on the left side as needed 5. Consultations: None 6. Medications: as per primary 7. Disposition: As needed in the future for repeat left greater trochanteric bursa injection. We did have a discussion regarding steroids and the possibility that there were an inciting incident of her recent herpes and shingles flareup. Although she has had these injections for long periods time she has never had a flareup like this before. I did note the steroids are an immunosuppressant and it is even more reason to space out her injections as much as she can. Patient understands and agrees Smoking Status Former smoker Blood Pressure 141/70 Pain Intensity [Lower Back] 2 Scale Used Numeric (1 - 10) Hx Alcohol Use (MH) Yes: rare PQRS Measure Charge Sheet Measure #226: Tobacco Use: Screen & Cessation Intervention: Pt not a tobacco user Measure #111: Pneumonia Vaccination: Pneumococcal vaccine administered or previously received Measure #47: Advance Care Plan: Advance care planning discussed & documented, pt chose/unable to give Measure #317: Preventitive Care & Scrn High Bld Press & F/U: Pre-hypertensive or hypertensive BP documented, pt will f/u with PCP Measure #131: Pain Assessment & Follow-up: Pain positive & plan documented, Follow-up scheduled Measure #431: Unhealthy Alcohol Use Preventative Care & Scrn: Patient not identified as an unhealthy alcohol user PQRS Narrative: Smoking Status Former smoker Pain Intensity [Lower Back] 5 Scale Used Numeric (1 - 10) Hx Alcohol Use (MH) Yes: rare Objective - Vital Signs Vital signs: Intake & Output 05/11/20 05/12/20 05/12/20 18:59 06:59 18:59 Weight 83.915 kg PQRS Measure Charge Sheet PQRS Narrative: Smoking Status Former smoker Pain Intensity [Left Hip] 2 Hx Alcohol Use (MH) Yes: rare Home Medications: Ambulatory Orders Baclofen [Lioresal] 10 mg PO QAM 07/13/17 Cyanocobalamin [Vitamin B-12 Injection] 1,000 mcg SQ QMONTH 07/13/17 Gabapentin [Neurontin] 600 mg PO BID 07/13/17 Levothyroxine Sodium [Synthroid] 125 mcg PO DAILY 07/13/17 Propranolol HCl [Propranolol HCl ER] 120 mg PO DAILY 07/13/17 Cholecalciferol (Vitamin D3) [Vitamin D3] 2,000 unit PO DAILY 11/27/17 Magnesium Citrate 250 mg PO DAILY 11/27/17 Baclofen [Lioresal] 20 mg PO HS 10/16/18 Biotin 5,000 mcg PO DAILY 10/16/18 Fluticasone/Salmeterol [Advair 250-50 Diskus] 2 puff PO BID PRN 10/16/18 Galcanezumab-Gnlm [Emgality] 120 mg SQ Q30D 10/16/18 Montelukast [Singulair] 10 mg PO DAILY 10/16/18 Multivit with Calcium,Iron,Min [Women's Multivitamin] 1 each PO DAILY 08/07/19 Rizatriptan Benzoate [Rizatriptan] 10 mg PO HS PRN 08/07/19 Vit C/E/Zn/Coppr/Lutein/Zeaxan [Preservision Areds 2 Softgel] 1 each PO DAILY 08/07/19 metFORMIN HCL [Glucophage] 500 mg PO BID 01/22/20 Omeprazole 40 mg PO DAILY PRN 02/28/20 HYDROcodone/APAP 10-325MG [[place] 10-325] 1 tab PO Q12HR PRN 05/11/20 valACYclovir HCL 1,000 mg PO TID 05/11/20 Controlled Substance Measures - Controlled Substance Measures Is patient prescribed a controlled substance at discharge?: No
== END | disposition home or self-care (01) ==
LOC: PNWHC3 09:54
PROVIDERS: ATTEND Anesthesiology
DX: M70.60 Trochanteric bursitis, unspecified hip (principal); M47.816 Spondylosis without myelopathy or radiculopathy, lumbar region; Z87.891 Personal history of nicotine dependence; Z79.891 Long term (current) use of opiate analgesic; Z79.890 Hormone replacement therapy; Z79.899 Other long term (current) drug therapy; Z79.84 Long term (current) use of oral hypoglycemic drugs
CPT/HCPCS: 99211

== ENCOUNTER → 2020-08-21 | Outpatient (CLI) | payer MEDICARE ==
--- NOTE | 2020-08-21 12:43 | US ---
EXAMINATION TYPE: US gallbladder DATE OF EXAM: 08/21/2020 COMPARISON: NONE CLINICAL HISTORY: 70-year-old female R10.13 Epigastric pain. Pt states nausea and pain behind shoulde rs TECHNIQUE: Multiple sonographic images of the right upper quadrant are obtained. FINDINGS: EXAM MEASUREMENTS: Liver Length: 18.9 cm Gallbladder Wall: 0.2 cm CBD: 0.6 cm Right Kidney: 9.9 x 4.0 x 5.4 cm Pancreas: Only portions of the pancreatic neck are visualized and show no gross abnormality. Remaind er is obscured by bowel gas shadowing. Liver: Mildly enlarged. No focal lesion seen. Gallbladder: wnl Evidence for sonographic Solo's sign: No CBD: wnl Right Kidney: wnl, lower pole gassed out . No hydronephrosis. IMPRESSION: 1. Mild hepatomegaly at 18.9 cm. 2. Borderline dilated bile duct at 6 mm, acceptable given patient's age. 3. No gallstones or acute cholecystitis.
== END ==
LOC: RADUSWWP 10:48
PROVIDERS: ATTEND Internal Medicine
DX: R10.13 Epigastric pain (principal)
CPT/HCPCS: 76705

== ENCOUNTER → 2020-09-24 | Outpatient (CLI) | payer MEDICARE ==
--- NOTE | 2020-09-24 14:03 | XR ---
EXAMINATION TYPE: XR abdomen complete w decub DATE OF EXAM: 09/24/2020 COMPARISON: NONE HISTORY: Diarrhea TECHNIQUE: Supine, upright, and left side down lateral decubitus views of the abdomen are obtained o n 5 images. FINDINGS: There is no evidence for pneumoperitoneum. The bowel gas pattern is unremarkable as there is air throughout nondilated small and large bowel. No sizeable air fluid levels. There is degenerative disc changes in the visualized spine, there is a spinal curvature No mass effects are seen. Retained stool seen throughout the distribution of the colon No unusual calcifications, probable phleboliths in the pelvis. IMPRESSION: Correlate for fecal stasis
[2020-09-24 21:26] LABS: Gliadin AB IgA, Deaminated NEGATIVE (NEGATIVE); Gliadin AB IgA, Unit 1.5 U/mL; Gliadin AB IgG, Deaminated NEGATIVE (NEGATIVE)
[2020-09-24 22:56] LABS: Hepatitis C IgG Antibody Reactive (Non-Reactive)
== END | disposition home or self-care (01) ==
LOC: LABWHC1 12:06
PROVIDERS: ATTEND Nurse Practitioner
DX: R19.7 Diarrhea, unspecified (principal); Z86.19 Personal history of other infectious and parasitic diseases
CPT/HCPCS: 36415; 74021; 82656; 83516; 83630; 86803; 87329; 87338

== ENCOUNTER → 2020-10-16 | Outpatient (CLI) | payer MEDICARE ==
[2020-10-16 23:08] LABS: Alpha Fetoprotein, Tumor Mkr <2.5 ng/mL (0.0-7.9)
[2020-10-17 03:14] LABS: Hepatitis B Surface AB- Quant 3.5 mIU/mL; Hepatitis B Surface Antibody Non-Reactive (Non-Reactive); Hepatitis B Surface Antigen Non-Reactive (Non-Reactive)
== END | disposition home or self-care (01) ==
LOC: LABWHC1 12:32
PROVIDERS: ATTEND Nurse Practitioner
DX: Z86.19 Personal history of other infectious and parasitic diseases (principal)
CPT/HCPCS: 36415; 82105; 86704; 86706; 87340; 87522

== ENCOUNTER → 2021-01-04 | Outpatient (CLI) | payer MEDICARE ==
[2021-01-04 07:42] VITALS: BP 147/73; PULSE 62; RESP 18; TEMP 97.7
--- NOTE | 2021-01-04 08:18 | P.PN ---
Subjective Progress Note Date: 01/04/21 This is a 70-year-old lady with history of chronic lower back pain with recent exacerbation and radiation to the lower extremities down to the ankles without paresthesia. The patient denies any bowel or bladder dysfunction or any weakness in the lower extremities. She has been getting interventional pain procedures along with oral opioids prescribed by her primary care physician to control her pain. The patient has been getting good results from that region pain procedures including epidurals and facet injection. Patient denies new-onset weakness, bowel/bladder incontinence, or any other signs or symptoms of cauda equina syndrome. There are no signs of acute int oxication, and no indications of medication diversion or overuse. In addition to above, 13-point review of systems is also negative for chest pain, shortness of breath, changes in vision, changes in hearing, new onset weakness, abdominal pain, diarrhea, extreme fatigue, malaise, fever, skin changes, homicidal or suicidal ideation, or bowel or bladder incontinence. Vital Signs: Reviewed in EMR Gen: AAOx3, NAD HEENT: PERRLA,hearing grossly normal Pulm: resp unlabored Neck: supple, trachea midline Neuro exam of the lower extremities: Normal muscle strength bilaterally Straight leg raising test: Negative bilaterally Dev's test: Range of motion of the lumbar spine: Facet loading test: Tenderness in the paravertebral musculature: Positive bilaterally in the lumbar area Neuro: CN II-XII grossly intact, Imaging: Reviewed in EMR/chart Assessment: Lumbar stenosis Lumbar DDD Diabetes Plan: 1. Explanation: Opioid and psychological risk scores were reviewed. Diagnoses, prognoses, and multiple treatment options including but not limited to physical therapy, interventional therapies, adjuvant medical therapies, narcotic medication therapies, and surgery were discussed with the patient and all questions were answered to the patient's satisfaction. 2. Opioid agreement: Signed with the patient and the patient is warned not to use opioids while driving or before driving and not to combine opioids with benzodiazepines or alcohol. 3. Counseling: The patient was counseled extensively on SMOKING CESSATION, BODY MASS INDEX, EXERCISE. Specifically, the patient was instructed regarding the importance of smoking cessation, obesity, and exercise in the context of both chronic pain and overall health. 4. Procedures: Scheduled for interlaminar lumbar epidural steroid injection at the L4 5 level in the fluoroscopic guidance 5. Consultations: None 6. Investigations: None 7. Medications: None prescribed today 8. Disposition: Return to clinic in 4 weeks and to the above-mentioned procedure as soon as possible 9. Maps were reviewed and were appropriate. Objective - Vital Signs Vital signs: Vital Signs Temp 97.7 F 01/04/21 07:35 Pulse 62 01/04/21 07:35 Resp 18 01/04/21 07:35 BP 147/73 01/04/21 07:35 Pulse Ox 95 01/04/21 07:35
== END ==
LOC: PNWHC3 07:22
PROVIDERS: ATTEND Anesthesiology
DX: M48.061 Spinal stenosis, lumbar region without neurogenic claudication (principal); M51.36 Other intervertebral disc degeneration, lumbar region; E11.9 Type 2 diabetes mellitus without complications; Z88.1 Allergy status to other antibiotic agents; Z88.5 Allergy status to narcotic agent; Z88.2 Allergy status to sulfonamides; Z88.6 Allergy status to analgesic agent; Z88.8 Allergy status to other drugs, medicaments and biological substances; Z87.891 Personal history of nicotine dependence
CPT/HCPCS: 99211

== ENCOUNTER 2021-02-04 06:26 | Day surgery (SDC) | payer MEDICARE ==
[2021-02-01 15:16] VITALS: BMI 31.8
[2021-02-04 06:50] VITALS: TEMP 98.6
[2021-02-04] MEDS ORDERED: LACTATED RINGERS 1,000 ML IV ONE (06:59)
[2021-02-04 07:00] LABS: Glucose,Whole Blood 107 mg/dL (75-99)
[2021-02-04] MEDS ORDERED: TRIAMCINOLONE ACETONIDE 40 MG/ML 1 ML VIAL ONE (07:32)
[2021-02-04] MEDS ORDERED: IOPAMIDOL M200 10 ML VIAL ONE (07:32)
[2021-02-04] MEDS ORDERED: MIDAZOLAM 2 MG/2 ML VIAL ONE (07:32)
[2021-02-04] MEDS ORDERED: fentaNYL (PF) 50 MCG/ML 2 ML AMP ONE (07:32)
--- NOTE | 2021-02-04 07:47 | P.PCN ---
Date of Procedure: 02/04/21 Description of Procedure: PREOPERATIVE DIAGNOSIS: Lumbar radiculopathy POSTOPERATIVE DIAGNOSIS: Same PROCEDURE PERFORMED: Interlaminar Epidural Steroid Injection at the L4-5 level, with a left paramedian approach under fluoroscopic guidance SURGEON: Louis Mcgovern MD ANESTHESIA: Local with 1% lidocaine 3 ml and IV sedation with anesthesia team Fluoroscopy was used for the procedure and images were saved in the radiology portion of the chart. EBL: Minimal PROCEDURE INDICATION: The patient presents with lumbar radicular symptoms unresponsive to conservative treatment. PROCEDURE DESCRIPTION / TECHNIQUE: The patient was seen and identified in the preoperative area. Risks, benefits, complications including but not limited to infections ,bleeding ,allergic reaction to the medications ,nerve damage and incomplete pain relief, and alternatives were discussed with the patient. The patient agreed to proceed with the procedure and signed the consent. IV was started, and vital signs were stable. Patient was taken to the OR and time out was completed. The patient was placed in the prone position on procedure table and a pillow was placed under the chest area. The cervical area was prepped and draped in the usual sterile fashion. Conscious sedation was used during the procedure to decrease patients anxiety. Vital signs was monitored during the entire procedure. Using anterior-posterior fluoroscopy, the L4-5 interlaminar space was identified and the skin over this site was marked and then infiltrated with 1% lidocaine subcutaneously. Subsequently, a 20-gauge Tuohy epidural needle was inserted and advanced toward the epidural space using the loss of resistance technique and guided by AP and lateral views. The correct needle position in the epidural space was verified. After negative aspiration for blood and CSF and in the absence of paresthesias, Isovue 200 2 mL's was injected under live fluoroscopy with good epidural spread. After negative aspiration, a 5 mL mixture containing 3 ml PFNS, 1 ml 1% lidocaine, 40 mg kenalog.. Needle was withdrawn intact, skin was cleansed, and bandages were applied. COMPLICATIONS: None DISPOSITION / PLANS: The patient was placed in a supine position and transferred to the recovery area in a stable condition for observation. There was no evidence of lower extremity motor or sensory deficit after the procedure. Patient was discharged from the recovery room after meeting discharge criteria. Home discharge instructions were given to the patient by the staff. The patient will be scheduled a followup in clinic in 2-4 weeks
[2021-02-04] MEDS ORDERED: IV FLUID CONTINUATION 650 ML IV ONE (07:52)
[2021-02-04 08:03] VITALS: RESP 20
[2021-02-04 08:20] VITALS: BP 132/70; PULSE 63
--- NOTE | 2021-02-04 10:07 | FL ---
Fluoroscopy HISTORY: Pain 12 seconds fluoroscopy time supplied to the referring clinician. 1 intraoperative C-arm images docum ent the procedure. See dictated report from anesthesia.
== END 2021-02-04 08:22 | disposition home or self-care (01) ==
LOC: ORPAIN 06:26
PROVIDERS: ATTEND Anesthesiology
DX: M54.16 Radiculopathy, lumbar region (principal)
CPT/HCPCS: 62323; J2250; J3301; J3010; Q9966; 99152

== ENCOUNTER → 2021-02-24 | Outpatient (CLI) | payer MEDICARE ==
--- NOTE | 2021-02-24 09:45 | P.PN ---
Subjective Progress Note Date: 02/24/21 This is a 70-year-old lady with a history of chronic lower back pain .the p atient used to have pain in both legs however this pain improved significantly after her last lumbar epidural steroid injection. Her pain is mostly now in the lower back area. The patient denies any numbness or tingling or weakness in the lower extremities. Her pain gets worse on the transitional positions while standing up from the sitting position. Patient denies new-onset weakness, bowel/bladder incontinence, or any other signs or symptoms of cauda equina syndrome. There are no signs of acute intoxication, and no indications of medication diversion or overuse. In addition to above, 13-point review of systems is also negative for chest pain, shortness of breath, changes in vision, changes in hearing, new onset weakness, abdominal pain, diarrhea, extreme fatigue, malaise, fever, skin changes, homicidal or suicidal ideation, or bowel or bladder incontinence. Vital Signs: Reviewed in EMR Gen: AAOx3, NAD HEENT: PERRLA,hearing grossly normal Pulm: resp unlabored Neck: supple, trachea midline Neuro exam of the lower extremities: Normal muscle strength bilaterally Straight leg raising test: Dev's test: Range of motion of the lumbar spine: Facet loading test: Positive the lumbar area Tenderness in the paravertebral musculature: Positive in the lumbar area bilaterally Neuro: CN II-XII grossly intact, Imaging: Reviewed in EMR/chart Assessment: Lumbar stenosis Lumbar spondylosis without myelopathy Lumbar DDD Diabetes treated with oral medications Plan: 1. Explanation: When patients on opioids, opioid and psychological risk scores were reviewed. Diagnoses, prognoses, and multiple treatment options including but not limited to physical therapy, interventional therapies, adjuvant medical therapies, narcotic medication therapies, and surgery were discussed with the patient and all questions were answered to the patient's satisfaction. 2. Opioid agreement:When patients are prescribed opoids through our clinic, opioid agreement is signed with the patient and the patient is warned not to use opioids while driving or before driving and not to combine opioids with benzodiazepines or alcohol. 3. Counseling: When patient is smoking or obese, the patient was counseled extensively on SMOKING CESSATION, BODY MASS INDEX, EXERCISE. Specifically, the patient was instructed regarding the importance of smoking cessation, obesity, and exercise in the context of both chronic pain and overall health. 4. Procedures: Schedule for a diagnostic lumbar medial branch block for the L4 5 and L5-S1 levels bilaterally under fluoroscopic guidance 5. Consultations: None 6. Investigations: None 7. Medications: None prescribed 8. Disposition: Proceed with the above-mentioned procedure as soon as possible 9. Maps were reviewed and were appropriate. PQRS measures: 1-Patient's medications are documented in the chart. 2-Tobacco use is negative, counseling given 3-Patient has had a pneumococcal vaccine. 4-Advanced care planning discussed, patient unable to give 5-Opioid contract signed with the patient. 6-Pain positive, follow-up visit or procedure scheduled 7-Patient's blood pressure measured and documented normal limits. The patient will follow up with his primary care physician. 8-Patient's weight was measured, and body mass index ABOVE the normal limits, and counseling was done. Patient instructed to follow up with PCP. 9-Patient WAS NOT identified as an unhealthy alcohol user.
[2021-02-24 09:55] VITALS: BP 113/70; PULSE 59; RESP 18; TEMP 98.1
== END ==
LOC: PNWHC3 09:19
PROVIDERS: ATTEND Anesthesiology
DX: M48.061 Spinal stenosis, lumbar region without neurogenic claudication (principal); M47.816 Spondylosis without myelopathy or radiculopathy, lumbar region; M51.36 Other intervertebral disc degeneration, lumbar region; E11.9 Type 2 diabetes mellitus without complications; Z79.84 Long term (current) use of oral hypoglycemic drugs; Z88.1 Allergy status to other antibiotic agents; Z88.5 Allergy status to narcotic agent; Z88.2 Allergy status to sulfonamides; Z88.6 Allergy status to analgesic agent; Z88.8 Allergy status to other drugs, medicaments and biological substances; Z87.891 Personal history of nicotine dependence
CPT/HCPCS: 99211

== ENCOUNTER 2021-04-02 07:04 | Day surgery (SDC) | payer MEDICARE ==
[2021-03-31 16:04] VITALS: BMI 32.8
[2021-04-02 07:41] LABS: Glucose,Whole Blood 111 mg/dL (75-99)
[2021-04-02 07:47] VITALS: TEMP 98.2
[2021-04-02] MEDS ORDERED: fentaNYL (PF) 50 MCG/ML 2 ML AMP ONE (07:50)
[2021-04-02] MEDS ORDERED: MIDAZOLAM 2 MG/2 ML VIAL ONE (07:50)
[2021-04-02] MEDS ORDERED: ROPIVACAINE 5MG/ML 20ML VIAL ONE (07:50)
[2021-04-02] MEDS ORDERED: TRIAMCINOLONE ACETONIDE 40 MG/ML 1 ML VIAL ONE (07:50)
--- NOTE | 2021-04-02 08:10 | P.PCN ---
Date of Procedure: 04/02/21 Procedure(s) Performed: PREOPERATIVE DIAGNOSIS : 1- Lumbar spondylosis with Facet Arthropathy without myelopathy . 2- Lumber degenerative disc disease POSTOPERATIVE DIAGNOSIS: 1- Lumbar spondylosis with Facet Arthropathy without myelopathy . 2- Lumber degenerative disc disease PROCEDURE: Diagnostic bilateral L3 , L4 , and L5 medial branch block under fluoroscopy guidance(fluoroscopy images available in the radiology Department ) ( To target the facet joint between Bilateral L4-5 , and L5-S1 )#1st ANESTHESIA:, monitered anesthesia care. EBL: Minimal COMPLICATION: None PROCEDURE INDICATION: Chronic low back pain secondary to Facet arthropathy unresponsive to conservative treatment. PROCEDURE DESCRIPTION: the patient was seen and identified in the preop holding area , risks and benefits and possible complications of the procedure and alternative were discussed with the patient, and the patient agreed to proceed with the procedure and signed the consent and vital signs monitored during the procedure and fluoroscopy was used to maximize the benefit and accuracy of the needle placement, and sedation was given to decrease patient anxiety, patient was taken to the procedure room and placed in prone position vital signs monitored in the back prepped with chlorhexidine X3 then under strict sterile technique using a right oblique fluoroscopy ,the junction of the transverse process and the superior articulating process of the right L3 , L4 , and L5 vertebra which corresponding to the fluoroscopy image of the eye of the [place] dog on the block side for the medial branches and subsequently , after local infiltration of skin and subcu tissuies with Ropivacaine 0.5 % , one mL at each level ,then 22-gauge Quincke-type needles , 3 needle was used , each one of them placed at the junction of the base of the transverse process and the superior articular process at the appropriate level, and the needle was advanced until the periosteum contacted, needle placement confirmed with AP oblique and lateral view and after appropriate needle placement confirmed, and after negative aspiration for heme and CSF and there was no paresthesia 1-1/2 mL of Ropivacaine 0.5% mixed with 20 mg Kenalog , then half mL injected at each level after negative aspiration the needle subsequently removed and the same procedure repeated for the left side at left side at L3 , L4 and L5 levels. At the end of the procedure and the needles removed and a bandage applied after the skin was cleaned the cleaning solution patient taken to recovery room in stable condition and monitors in the recovery room for 20-30 minutes and discharged home in stable condition after discharge criteria met and patient will follow up with the pain clinic in 2-4 weeks
[2021-04-02 08:15] VITALS: RESP 16
[2021-04-02 08:29] VITALS: BP 115/68; PULSE 67
[2021-04-02] MEDS ORDERED: IV FLUID CONTINUATION 1,000 ML IV ONE (08:29)
--- NOTE | 2021-04-02 08:57 | FL ---
EXAMINATION TYPE: FL guided pain mgmt statistic DATE OF EXAM: 04/02/2021 HISTORY: Fluoroscopy time 11 seconds of fluoroscopy provided. IMPRESSION: 1. Fluoroscopy time.
== END 2021-04-02 08:43 | disposition home or self-care (01) ==
LOC: ORPAIN 07:04
PROVIDERS: ATTEND Specialist
DX: G89.29 Other chronic pain (principal); M47.816 Spondylosis without myelopathy or radiculopathy, lumbar region; M51.36 Other intervertebral disc degeneration, lumbar region; J45.909 Unspecified asthma, uncomplicated; E11.9 Type 2 diabetes mellitus without complications; E07.9 Disorder of thyroid, unspecified; K21.9 Gastro-esophageal reflux disease without esophagitis; Z79.890 Hormone replacement therapy; Z79.899 Other long term (current) drug therapy; Z85.42 Personal history of malignant neoplasm of other parts of uterus; Z88.6 Allergy status to analgesic agent; Z88.1 Allergy status to other antibiotic agents; Z88.5 Allergy status to narcotic agent; Z88.2 Allergy status to sulfonamides; Z88.8 Allergy status to other drugs, medicaments and biological substances
CPT/HCPCS: 64493; 64494; J2250; J3301; J3010; J2795

== ENCOUNTER 2021-05-28 07:19 | Day surgery (SDC) | payer MEDICARE ==
[2021-05-27 10:29] VITALS: BMI 32.8
[2021-05-28] MEDS ORDERED: LACTATED RINGERS 1,000 ML IV SCH (07:28)
[2021-05-28 08:01] LABS: Glucose,Whole Blood 108 mg/dL (75-99)
[2021-05-28] MEDS ORDERED: LIDOCAINE 1% (10MG/ML) FOR IV START INTRADERMA ONE (08:03)
[2021-05-28 08:04] VITALS: TEMP 97.7
[2021-05-28] MEDS ORDERED: ROPIVACAINE 5MG/ML 20ML VIAL ONE (08:32)
[2021-05-28] MEDS ORDERED: methylPREDNISolone ACETATE 40 MG/ML 1 ML VIAL ONE (08:32)
[2021-05-28] MEDS ORDERED: MIDAZOLAM 2 MG/2 ML VIAL ONE (08:32)
[2021-05-28] MEDS ORDERED: .fentaNYL (PF) 50 MCG/ML 2 ML AMP ONE (08:32)
--- NOTE | 2021-05-28 08:51 | P.PCN ---
Date of Procedure: 05/28/21 Procedure(s) Performed: PREOPERATIVE DIAGNOSIS : 1- Lumbar spondylosis with Facet Arthropathy without myelopathy . 2- Lumber degenerative disc disease POSTOPERATIVE DIAGNOSIS: 1- Lumbar spondylosis with Facet Arthropathy without myelopathy . 2- Lumber degenerative disc disease PROCEDURE: Diagnostic bilateral L3 , L4 , and L5 medial branch block under fluoroscopy guidance(fluoroscopy images available in the radiology Department ) ( To target the facet joint between Bilateral L4-5 , and L5-S1 )#2nd ANESTHESIA:, monitered anesthesia care. EBL: Minimal COMPLICATION: None PROCEDURE INDICATION: Chronic low back pain secondary to Facet arthropathy unresponsive to conservative treatment. PROCEDURE DESCRIPTION: the patient was seen and identified in the preop holding area , risks and benefits and possible complications of the procedure and alternative were discussed with the patient, and the patient agreed to proceed with the procedure and signed the consent and vital signs monitored during the procedure and fluoroscopy was used to maximize the benefit and accuracy of the needle placement, and sedation was given to decrease patient anxiety, patient was taken to the procedure room and placed in prone position vital signs monitored in the back prepped with chlorhexidine X3 then under strict sterile technique using a right oblique fluoroscopy ,the junction of the transverse process and the superior articulating process of the right L3 , L4 , and L5 vertebra which corresponding to the fluoroscopy image of the eye of the [place] dog on the block side for the medial branches and subsequently , after local infiltration of skin and subcu tissuies with Ropivacaine 0.5 % , one mL at each level ,then 22-gauge Quincke-type needles , 3 needle was used , each one of them placed at the junction of the base of the transverse process and the superior articular process at the appropriate level, and the needle was advanced until the periosteum contacted, needle placement confirmed with AP oblique and lateral view and after appropriate needle placement confirmed, and after negative aspiration for heme and CSF and there was no paresthesia 1-1/2 mL of Ropivacaine 0.5% mixed with 20 mg Depo-Medrol, then half mL injected at each level after negative aspiration the needle subsequently removed and the same procedure repeated for the left side at left side at L3 , L4 and L5 levels. At the end of the procedure and the needles removed and a bandage applied after the skin was cleaned the cleaning solution patient taken to recovery room in stable condition and monitors in the recovery room for 20-30 minutes and discharged home in stable condition after discharge criteria met and patient will follow up with the pain clinic in 2-4 weeks
[2021-05-28 08:59] VITALS: RESP 16
[2021-05-28] MEDS ORDERED: IV FLUID CONTINUATION 800 ML IV ONE (09:01)
--- NOTE | 2021-05-28 09:11 | FL ---
EXAMINATION TYPE: FL guided pain mgmt statistic DATE OF EXAM: 05/28/2021 HISTORY: Fluoroscopy time 22 seconds of fluoroscopy provided. IMPRESSION: 1. Fluoroscopy time.
[2021-05-28 09:12] VITALS: BP 121/63; PULSE 65
== END 2021-05-28 09:28 | disposition home or self-care (01) ==
LOC: ORPAIN 07:19
PROVIDERS: ATTEND Specialist
DX: M47.816 Spondylosis without myelopathy or radiculopathy, lumbar region (principal); M54.50 Low back pain, unspecified; M51.36 Other intervertebral disc degeneration, lumbar region
CPT/HCPCS: 64493; 64494; J2250; J1030; J3010; J2795

== ENCOUNTER → 2021-08-06 | Day surgery (SDC) | payer MEDICARE ==
[2021-08-05 11:01] VITALS: BMI 32.8
[~2021-08-06] MED LIST changes: +IV FLUID CONTINUATION 1,000 ML IV ONE; +KETOROLAC 15 MG/ML 1 ML VIAL IVP ONE; +KETOROLAC 30 MG/ML 1 ML VIAL ONE; +LACTATED RINGERS 1,000 ML IV ONE; +LIDOCAINE 1% (10MG/ML) FOR IV START INTRADERMA PRN; +MIDAZOLAM 2 MG/2 ML VIAL ONE; +ROPIVACAINE 5MG/ML 20ML VIAL ONE; +fentaNYL (PF) 50 MCG/ML 2 ML AMP ONE; +methylPREDNISolone ACETATE 40 MG/ML 1 ML VIAL ONE
[2021-08-06 06:40] VITALS: TEMP 98.2
[2021-08-06 06:48] LABS: Glucose,Whole Blood 92 mg/dL (75-99)
--- NOTE | 2021-08-06 07:54 | P.PCN ---
Date of Procedure: 08/06/21 Procedure(s) Performed: PREOPERATIVE DIAGNOSIS: 1-Lumbar Spondylosis with Facet Arthropathy without myelopathy. 2- Lumber degenerative disc disease. POSTOPERATIVE DIAGNOSIS: 1- Lumbar Spondylosis with Facet Arthropathy without myelopathy. 2- Lumber degenerative disc disease. PROCEDURES : Bilateral Radiofrequency thermocoagulation, L3 , L4 , and L5 medial branch, with fluoroscopic guidance (fluoroscopy images available in the radiology department) ( to denervate the facet joint at Bilateral L4-5 ,and L5-S1 levels ). ANESTHESIA: Monitored anesthesia care as per anesthesia department . EBL: Minimal PROCEDURE INDICATION: The patient with low back pain secondary to lumbar facet arthropathy who had more than 50% relief of her pain with previous diagnostic lumbar medial branch block with Ropivacaine. PROCEDURE DESCRIPTION / TECHNIQUE: The patient was seen and identified in the preoperative area. Risks, benefits, complications, including but not limited to risk of infection ,bleeding , allergic reactions to the medications and no complete pain releife , and alternatives were discussed with the patient, the patient agreed to proceed with the procedure and signed the consent. IV was started. Vital signs remained stable throughout the procedure. Patient was taken to the OR and time out was completed. The patient was placed in the prone position on the procedure table. The lumber area was prepped and draped in the usual sterile fashion. . Vital signs were closely monitored during the procedure .IV sedation was used during the procedure to decrease patients anxiety. Using AP and then oblique fluoroscopy, the ``eye of the [place] dog mykel esponding to the connection between the superior and transverse articular processes of right L3, L4, and L5 were identified, marked, and localized with 1% lidocaine. Subsequently, a 18 [id number] radiofrequency cannula with a 10- mm active tip was advanced guided by fluoroscopy to each of the``eyes of the [place] dog at right L3, L4, and L5. Each site then underwent sensory testing at 50 Hz and 0 to 1 volt and motor testing at 2.5 Hz and 0 to 3 volt with local stimulation, but no radicular symptoms down the legs. Thereafter each sites underwent radiofrequency thermocoagulation at 80 degrees celsius for 90 seconds after injecting 0.5 ml of PF Ropivacaine 1ml, then after the thermocoagulation done , 1 ml of the block solution containing Depo-Medrol 20 mg and 3 ml of Ropivacaine 0.5% was injected at the right L3 , L4 , and L5 , levels after negative aspiration of CSF and blood and with no paresthesias. Cannulas were retracted while injecting lidocaine 1% until the needle is out. The same procedure was repeated at the level of Left L3, L4, and L5 levels. At the end of the procedure, the skin was cleansed and bandages were applied. COMPLICATIONS: No acute complications. DISPOSITION / PLANS: The patient was placed in a supine position and transferred to the recovery area in a stable condition for observation and was discharged from the recovery room after meeting discharge criteria. Home discharge instructions given to the patient by the staff. The patient was reexamined prior to discharge. The patient will schedule a follow up in the clinic in 2-4 weeks.
[2021-08-06 08:07] VITALS: RESP 16
[2021-08-06 08:37] VITALS: BP 144/77; PULSE 63
--- NOTE | 2021-08-06 11:42 | FL ---
Fluoroscopy HISTORY: Pain 28seconds fluoroscopy time supplied to the referring clinician. 6 intraoperative C-arm images docume nt the procedure. See dictated report from anesthesia.
== END ==
LOC: ORPAIN 06:13
PROVIDERS: ATTEND Specialist
DX: M47.816 Spondylosis without myelopathy or radiculopathy, lumbar region (principal); G89.4 Chronic pain syndrome; M51.36 Other intervertebral disc degeneration, lumbar region
CPT/HCPCS: 64635; 64636; J2250; J1030; J3010; J1885; J2795

== ENCOUNTER → 2021-08-25 | Outpatient (CLI) | payer MEDICARE ==
[2021-08-25 10:52] VITALS: BP 128/79; PULSE 94; RESP 18; TEMP 98.2
--- NOTE | 2021-08-25 10:58 | P.PN ---
Subjective Progress Note Date: 08/25/21 (.) Principal diagnosis: A 71 yr old female with a history of severe and chronic low back pain secondary to lumbar degenerative disc diseases and lumbar spondylosis with facet arthropathy presents today for evaluation status post RFA bilateral L4-L5, L5- S1. Patient states she experienced 80% pain relief for several weeks thus far status post procedure. Pain level is currently at 3 out of 10 in intensity, constant, pressure-type sensation in the center at of her back without radiation of pain. Pain is provoked by bending, standing or gardening. 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 Pain is alleviated with medications, topicals, ice, heat, sitting on a sponge seat, stretching and rest. Patient has not had physical therapy, chiropractic treatments or massage therapy in several years. Interventional pain procedures completed include LESI L4-L5. L TFESI L4-L5, L5- S1. RFA BL L4-L5, L5-S1. Patient is currently on [place] from Dr You Patient denies any side effects of the medication(s), denies excessive drowsiness or sleepiness, denies suicidal ideation and reports that the current pain medication is helping to control the pain and improve activities of daily living. Patient denies any motor or sensory deficits. Patient denies any fever or night sweats, denies any change in the bowel movements or urination. Physical Examination: -Constitutional: Cooperative. Not in acute distress . -HEENT: Neck is supple. No lymphadenopathy. No thyromegaly. Normal thyroid size. Eyes: No ptosis , no icterus, no photophobia. ENT: No auditory deficits. Normal oropharynx. No Thrush. - Respiratory: Chest clear to auscultations bilaterally. No wheezing. No rhonchi. - Cardiovascular: Regular rate and rhythm. S1 / S2 , no S3 , no S4. - Gastrointestinal: Abdomen soft no tenderness. Bowel sounds positive in all four quadrants. No organomegaly. - Genitourinary: Deferred. - Neurologic: Cranial nerve II to XII intact. No focal neurological deficits. - Psychatric: Alert & oriented x 3. Matching mood & appropriate affect. Judgment and insight intact. - Lymphatic: No Lymphadenopathy. - Musculoskeletal: Cervical spine: Muscle bulk/ tone/ strength in the bilateral upper extremities normal. Facet loading test cervical area positive. Lumbar spine: Motor bulk/ tone/ strength lower extremities , thigh and legs : 5/5 Deep tendon reflexes : Normal Knee Jerk. Normal Ankle Jerk . Vertebral body tenderness to palpation over L4, L5 Lumbar Facet Loading Test positive Straight Leg Raise: positive at 30 degrees right side/ left side Gaenslen's Test positive Sacral spine : Severe tenderness over the Sacroiliac joint: right side / left side Range of motion: Flexion of the lumbar spine <60 degrees Range of motion: Extension of the lumbar spine <20 degrees Gaenslen's Test positive Michelle test: positive right side / left side Assessment and plan: Chronic low back pain secondary to lumbar degenerative disc disease , lumbar spondylosis with facet arthropathy without myelopathy Recommendation of LESI L4-L5, L5-S1. May need a series of injections, up to 3 within a 6 month period, to obtain optimal pain relief. Risks, benefits of procedure discussed and pt verbalized understanding. Denies anticoagulant use. Admits to medical history of Diabetes Mellitus and taking Metformin. Discontinuation of medication prior to procedure discussed. All patient questions answered MAPS reviewed and it was appropriate. I have spent 31 minutes on patient care today. Dr Do was available by phone for the evaluation of this patient. The time was used to review the medical records including relevant urine studies and Prescription history (MAPs), review of the available imaging, evaluation and examination of the patient, coordination of care with the medical staff and if applicable referring physicians, as well as creation of the medical record Objective - Vital Signs Vital signs: Vital Signs Temp 98.2 F 08/25/21 10:42 Pulse 94 08/25/21 10:42 Resp 18 08/25/21 10:42 BP 128/79 08/25/21 10:42 Pulse Ox 94 L 08/25/21 10:42 PQRS Measure Charge Sheet Mode of Arrival: Ambulatory - Pain Location Lower Medial Back Non-Pharmacological Interventions: Heat, Ice, Sitting Pharmacological Interventions: Block, PRN Medication, Topical Medication PQRS Narrative: Smoking Status Former smoker Blood Pressure 128/79 Pain Intensity [Lower Medial 3 Back] Scale Used Numeric (1 - 10) Hx Alcohol Use (MH) Yes: rare Home Medications: Ambulatory Orders Baclofen [Lioresal] 10 mg PO QAM 07/13/17 Cyanocobalamin [Vitamin B-12 Injection] 1,000 mcg SQ QMONTH 07/13/17 Levothyroxine Sodium [Synthroid] 125 mcg PO DAILY 07/13/17 Propranolol HCl [Propranolol HCl ER] 120 mg PO DAILY 07/13/17 Cholecalciferol (Vitamin D3) [Vitamin D3] 50 mcg PO DAILY 11/27/17 Magnesium Citrate 250 mg PO DAILY 11/27/17 Baclofen [Lioresal] 20 mg PO HS 10/16/18 Biotin [Biotin Disolve] 5,000 mcg PO DAILY 10/16/18 Fluticasone/Salmeterol [Advair 250-50 Diskus] 2 puff PO BID PRN 10/16/18 Galcanezumab-Gnlm [Emgality] 120 mg SQ Q30D 10/16/18 Montelukast [Singulair] 10 mg PO DAILY 10/16/18 Multivit with Calcium,Iron,Min [Women's Multivitamin] 1 each PO DAILY 08/07/19 Rizatriptan Benzoate [Rizatriptan] 10 mg PO DAILY PRN 08/07/19 Vit C/E/Zn/Coppr/Lutein/Zeaxan [Preservision Areds 2 Softgel] 1 each PO DAILY 08/07/19 metFORMIN HCL [Glucophage] 500 mg PO BID 01/22/20 Omeprazole 40 mg PO DAILY PRN 02/28/20 HYDROcodone/APAP 10-325MG [[place] 10-325] 1 tab PO Q12HR PRN 05/11/20 ALPRAZolam [Xanax] 1 mg PO DAILY PRN 12/30/20 Linaclotide [Linzess] 72 mcg PO DAILY 12/30/20 DULoxetine HCL [Cymbalta] 20 mg PO QAM 02/01/21 Gabapentin 600 mg PO BID 02/01/21
== END ==
LOC: PNWHC3 09:46
PROVIDERS: ATTEND Physician Assistant Medical
DX: M51.36 Other intervertebral disc degeneration, lumbar region (principal); M47.816 Spondylosis without myelopathy or radiculopathy, lumbar region; G89.29 Other chronic pain; E11.9 Type 2 diabetes mellitus without complications; Z79.84 Long term (current) use of oral hypoglycemic drugs; Z87.891 Personal history of nicotine dependence; Z88.1 Allergy status to other antibiotic agents; Z88.5 Allergy status to narcotic agent; Z88.6 Allergy status to analgesic agent; Z88.2 Allergy status to sulfonamides; Z88.8 Allergy status to other drugs, medicaments and biological substances
CPT/HCPCS: 99211

== ENCOUNTER → 2021-10-12 | Outpatient (CLI) | payer MEDICARE ==
--- NOTE | 2021-10-12 12:28 | FL ---
EXAMINATION TYPE: FL barium swallow w video DATE OF EXAM: 10/12/2021 COMPARISON: NONE HISTORY: Aspiration pneumonitis. The patient was evaluated in the lateral projection during real-time fluoroscopy, during ingestion of barium mixed with solids and liquids. No aspiration or laryngeal penetration. See report from [facility]. 1 minute fluoroscopy time, no images obtained
== END | disposition home or self-care (01) ==
LOC: RADFLMAIN 11:01
PROVIDERS: ATTEND Internal Medicine
DX: J69.0 Pneumonitis due to inhalation of food and vomit (principal)
CPT/HCPCS: 74230

== ENCOUNTER 2021-10-28 06:23 | Day surgery (SDC) | payer MEDICARE ==
[2021-09-10 14:39] VITALS: BMI 32.8
[~2021-10-28 06:23] MED LIST changes: -IV FLUID CONTINUATION 1,000 ML IV ONE; -KETOROLAC 15 MG/ML 1 ML VIAL IVP ONE; -KETOROLAC 30 MG/ML 1 ML VIAL ONE; -LACTATED RINGERS 1,000 ML IV ONE; -MIDAZOLAM 2 MG/2 ML VIAL ONE; -ROPIVACAINE 5MG/ML 20ML VIAL ONE; -fentaNYL (PF) 50 MCG/ML 2 ML AMP ONE; -methylPREDNISolone ACETATE 40 MG/ML 1 ML VIAL ONE
[2021-10-28 07:09] LABS: Glucose,Whole Blood 106 mg/dL (75-99)
[2021-10-28 07:16] VITALS: TEMP 97.1
[2021-10-28] MEDS ORDERED: MIDAZOLAM 2 MG/2 ML VIAL ONE (07:23)
[2021-10-28] MEDS ORDERED: IOPAMIDOL M200 10 ML VIAL ONE (07:23)
[2021-10-28] MEDS ORDERED: fentaNYL (PF) 50 MCG/ML 2 ML AMP ONE (07:23)
[2021-10-28] MEDS ORDERED: methylPREDNISolone ACETATE 40 MG/ML 1 ML VIAL ONE (07:23)
--- NOTE | 2021-10-28 07:35 | P.PCN ---
Date of Procedure: 10/28/21 Procedure(s) Performed: PREOPERATIVE DIAGNOSIS: 1- Lumbar Degenerative Disc Diseases 2-Lumbar spondylosis with Facet arthropathy without myelopathy POSTOPERATIVE DIAGNOSIS: Same as preop diagnosis. PROCEDURE 1. Lumbar epidural steroid injection under fluoroscopic guidance at the L4-5 level. (Fluoroscopy imaging was available in radiology department) 2. Lumbar epidurogram. ANESTHESIA: Local with 1% lidocaine 3 ml and , moderate sedation with intravenous Versed 1 mg ,and fentanyle 50 Mcg EBL: Minimal PROCEDURE INDICATION: The patient with low back pain and radiculitis symptoms unresponsive to conservative treatment. Fluoroscopy was used to optimize visualization of the needle placement and to maximize safety. PROCEDURE DESCRIPTION / TECHNIQUE: The patient was seen and identified in the preoperative area. Risks, benefits, complications including but not limited to infections ,bleeding ,allergic reaction to the medications ,nerve damage and not complete pain releife , and alternatives were discussed with the patient. The patient agreed to proceed with the procedure and signed the consent. IV was started, and vital signs were stable. Patient was taken to the OR and time out was completed. The patient was placed in the prone position on procedure table and a pillow was placed under the abdomen to reduce lumbar lordosis. The lumbosacral area was prepped and draped in the usual sterile fashion.ere closely monitored during the procedure. Cons cious sedation was used during the procedure to decrease patients anxiety. Vital signs was monitered during the entire procedure. Using anterior-posterior fluoroscopy, the L4-5 interlaminar space was identified and the skin over this site was marked and then infiltrated with 1% lidocaine subcutaneously. Subsequently, a 18-gauge Tuohy epidural needle was inserted and advanced toward the epidural space using the ``Loss of resistance technique and guided by AP and lateral fluoroscopy. The correct needle position in the epidural space was verified with the injection of 2 mL of the water soluble contrast dye Isovue 200 contrast and observing an excellent epidurogram with the epidural spread of the dye, after negative aspiration for blood and CSF and in the absence of paresthesias. Again after negative aspiration, a 6 ml mixture containing 40 mg of Depo-medrol , and 2 ml of preservative free Normal Saline, and 2 ml of preservative free lidocaine 1% solution was injected and a washout of epidurogram was seen. Needle was withdrawn intact, skin was cleansed, and bandages were applied. COMPLICATIONS: None DISPOSITION / PLANS: The patient was placed in a supine position and transferred to the recovery area in a stable condition for observation. There was no evidence of lower extremity motor or sensory deficit after the procedure. Patient was discharged from the recovery room after meeting discharge criteria. Home discharge instructions were given to the patient by the staff. The patient was reexamined prior to discharge. The patient will schedule a follow up in the clinic in 2-4 weeks.
[2021-10-28] MEDS ORDERED: IV FLUID CONTINUATION 1,000 ML IV ONE (07:39)
[2021-10-28 07:55] VITALS: BP 122/73; PULSE 63; RESP 14
--- NOTE | 2021-10-28 08:53 | FL ---
EXAMINATION TYPE: FL guided pain mgmt statistic DATE OF EXAM: 10/28/2021 HISTORY: Fluoroscopy time 4 seconds of fluoroscopy provided. IMPRESSION: 1. Fluoroscopy time.
== END 2021-10-28 08:09 | disposition home or self-care (01) ==
LOC: ORPAIN 06:23
PROVIDERS: ATTEND Specialist
DX: M51.36 Other intervertebral disc degeneration, lumbar region (principal); M47.26 Other spondylosis with radiculopathy, lumbar region
CPT/HCPCS: 62323; J2250; J1030; J3010; Q9966

== ENCOUNTER → 2021-11-29 | Outpatient (CLI) | payer MEDICARE ==
--- NOTE | 2021-11-29 10:19 | P.PAINPG ---
PQRS Measure Charge Sheet Comment: A 71 yr old female with a history of severe and chronic low back pain secondary to lumbar degenerative disc diseases and lumbar spondylosis with facet arthropathy presents today for evaluation status post LESI L4-L5 #1. She states she experienced 90% pain relief status post procedure. Pain level is currently at 4 out of 10 in intensity, localized in the lower aspect of her lumbar spine for the last 2 years, left side greater than right, deep, achy in character with occasional radiation of sharp pain down the left lower extremity. Pain is provoked with bending, twisting and lifting. Pain is alleviated with medications ([place]), topicals, injections, ice, heat, physical therapy in the past but she i s unsure when, daily home stretching regimen, use of hot pads and laying supine. Interventional pain procedures completed include LESI L4-L5 times one Patient is currently on [place] from her PCP Patient denies any side effects of the medication(s), denies excessive drowsiness or sleepiness, denies suicidal ideation and reports that the current pain medication is helping to control the pain and improve activities of daily living. Patient denies any motor or sensory deficits. Patient denies any fever or night sweats, denies any change in the bowel movements or urination. Physical Examination: -Constitutional: Cooperative. Not in acute distress . -HEENT: Neck is supple. No lymphadenopathy. No thyromegaly. Normal thyroid size. Eyes: No ptosis , no icterus, no photophobia. ENT: No auditory deficits. Normal oropharynx. No Thrush. - Respiratory: Chest clear to auscultations bilaterally. No wheezing. No rhonchi. - Cardiovascular: Regular rate and rhythm. S1 / S2 , no S3 , no S4. - Gastrointestinal: Abdomen soft no tenderness. Bowel sounds positive in all four quadrants. No organomegaly. - Genitourinary: Deferred. - Neurologic: Cranial nerve II to XII intact. No focal neurological deficits. - Psychatric: Alert & oriented x 3. Matching mood & appropriate affect. Judgment and insight intact. - Lymphatic: No Lymphadenopathy. - Musculoskeletal: Cervical spine: Muscle bulk/ tone/ strength in the bilateral upper extremities normal Vertebral body tenderness to palpation over Facet loading test positive Thoracic spine Muscle bulk / tone/ strength in the bilateral paraspinal muscles normal Vertebral body tender to palpation over Facet loading test positive Lumbar spine: Motor bulk/ tone/ strength lower extremities , thigh and legs : 5/5 Deep tendon reflexes : Normal Knee Jerk. Normal Ankle Jerk . Vertebral body tenderness to palpation over L4, L5 Lumbar Facet Loading Test positive Straight Leg Raise: positive at 30 degrees right side/ left side Gaenslen's Test positive Sacral spine : Severe tenderness over the Sacroiliac joint: right side / left side Range of motion: Flexion of the lumbar spine <60 degrees Range of motion: Extension of the lumbar spine <20 degrees Gaenslen's Test positive Dev's Test positive Michelle test: positive right side / left side Thigh Thrust Test Sacral Thrust Test Assessment and plan: Chronic low back pain secondary to lumbar degenerative disc disease , lumbar spondylosis with facet arthropathy without myelopathy Recommendation of DEANDRAI L4-L5 #2. May need a series of injections, up to 3 within a six-month timeframe, for optimal pain relief. Risks, benefits of procedure discussed and pt verbalized understanding. Denies anticoagulant use. Admits to a medical history of diabetes. Protocol for discontinuation/continuation of medications larry procedure discussed. All patient questions answered MAPS reviewed and it was appropriate. I have spent 31 minutes on patient care today. Dr Do was available by phone for the evaluation of this patient. The time was used to review the medical records including relevant urine studies and Prescription history (MAPs), review of the available imaging, evaluation and examination of the patient, coordination of care with the medical staff and if applicable referring physicians, as well as creation of the medical record PQRS Narrative: Smoking Status Former smoker Hx Alcohol Use (MH) Yes: rare Home Medications: Ambulatory Orders Baclofen [Lioresal] 10 mg PO QAM 07/13/17 Cyanocobalamin [Vitamin B-12 Injection] 1,000 mcg SQ QMONTH 07/13/17 Levothyroxine Sodium [Synthroid] 125 mcg PO DAILY 07/13/17 Propranolol HCl [Propranolol HCl ER] 120 mg PO DAILY 07/13/17 Cholecalciferol (Vitamin D3) [Vitamin D3] 50 mcg PO DAILY 11/27/17 Magnesium Citrate 250 mg PO DAILY 11/27/17 Baclofen [Lioresal] 20 mg PO HS 10/16/18 Biotin [Biotin Disolve] 5,000 mcg PO DAILY 10/16/18 Galcanezumab-Gnlm [Emgality] 120 mg SQ Q30D 10/16/18 Montelukast [Singulair] 10 mg PO DAILY 10/16/18 Multivit with Calcium,Iron,Min [Women's Multivitamin] 1 each PO DAILY 08/07/19 Rizatriptan Benzoate [Rizatriptan] 10 mg PO DAILY PRN 08/07/19 Vit C/E/Zn/Coppr/Lutein/Zeaxan [Preservision Areds 2 Softgel] 1 each PO DAILY 08/07/19 metFORMIN HCL [Glucophage] 500 mg PO BID 01/22/20 Omeprazole 40 mg PO DAILY PRN 02/28/20 HYDROcodone/APAP 10-325MG [[place] 10-325] 1 tab PO Q12HR PRN 05/11/20 ALPRAZolam [Xanax] 1 mg PO DAILY PRN 12/30/20 Linaclotide [Linzess] 145 mcg PO DAILY 12/30/20 DULoxetine HCL [Cymbalta] 30 mg PO QAM 02/01/21 Gabapentin 600 mg PO BID 02/01/21 cycloSPORINE [Restasis Multidose] 1 drop BOTH EYES BID 09/10/21 Losartan Potassium 50 mg PO DAILY 10/26/21 Controlled Substance Measures - Controlled Substance Measures Is patient prescribed a controlled substance at discharge?: No
[2021-11-29 10:27] VITALS: BP 136/68; PULSE 64; RESP 18; TEMP 98.2
== END ==
LOC: PNWHC3 09:51
PROVIDERS: ATTEND Specialist
DX: G89.29 Other chronic pain (principal); M51.36 Other intervertebral disc degeneration, lumbar region; M47.816 Spondylosis without myelopathy or radiculopathy, lumbar region; E11.9 Type 2 diabetes mellitus without complications; Z87.891 Personal history of nicotine dependence; Z79.891 Long term (current) use of opiate analgesic; Z79.899 Other long term (current) drug therapy; Z79.1 Long term (current) use of non-steroidal anti-inflammatories (NSAID); Z79.84 Long term (current) use of oral hypoglycemic drugs; Z88.1 Allergy status to other antibiotic agents; Z88.5 Allergy status to narcotic agent; Z88.8 Allergy status to other drugs, medicaments and biological substances; Z88.6 Allergy status to analgesic agent
CPT/HCPCS: 99211

== ENCOUNTER 2022-01-06 06:07 | Day surgery (SDC) | payer MEDICARE ==
[2022-01-04 15:32] VITALS: BMI 33.5
[2022-01-06 06:29] VITALS: TEMP 97.4
[2022-01-06] MEDS ORDERED: LACTATED RINGERS 1,000 ML IV ONE ×3 (06:29→07:15)
[2022-01-06 06:37] LABS: Glucose,Whole Blood 116 mg/dL (70-110)
[2022-01-06] MEDS ORDERED: methylPREDNISolone ACETATE 40 MG/ML 1 ML VIAL ONE (06:56)
[2022-01-06] MEDS ORDERED: fentaNYL (PF) 50 MCG/ML 2 ML AMP ONE (06:56)
[2022-01-06] MEDS ORDERED: MIDAZOLAM 2 MG/2 ML VIAL ONE (06:56)
--- NOTE | 2022-01-06 07:09 | P.PCN ---
Date of Procedure: 01/06/22 Procedure(s) Performed: PREOPERATIVE DIAGNOSIS: 1- Lumbar Degenerative Disc Diseases 2-Lumbar spondylosis with Facet arthropathy without myelopathy POSTOPERATIVE DIAGNOSIS: Same as preop diagnosis. PROCEDURE 1. Lumbar epidural steroid injection under fluoroscopic guidance at the L4-5 level. (Fluoroscopy imaging was available in radiology department) 2. Lumbar epidurogram. ANESTHESIA: moderate sedation with intravenous Versed 2 mg ,and fentanyle 100 Mcg Sedation the start time: 06:59. Sedation end time: 07:07 EBL: Minimal PROCEDURE INDICATION: The patient with low back pain and radiculitis symptoms unresponsive to conservative treatment. Fluoroscopy was used to optimize visualization of the needle placement and to maximize safety. PROCEDURE DESCRIPTION / TECHNIQUE: The patient was seen and identified in the preoperative area. Risks, benefits, complications including but not limited to infections ,bleeding ,allergic reaction to the medications ,nerve damage and not complete pain releife , and alternatives were discussed with the patient. The patient agreed to proceed with the procedure and signed the consent. IV was started, and vital signs were stable. Patient was taken to the OR and time out was completed. The patient was placed in the prone position on procedure table and a pillow was placed under the abdomen to reduce lumbar lordosis. The lumbosacral area was prepped and draped in the usual sterile fashion.ere closely monitored during the procedure. Conscious sedation was used during the procedure to decrease patients anxiety. Vital signs was monitered during the entire procedure. Using anterior-posterior fluoroscopy, the L4-5 interlaminar space was identified and the skin over this site was marked and then infiltrated with 1% lidocaine subcutaneously. Subsequently, a 18-gauge Tuohy epidural needle was inserted and advanced toward the epidural space using the ``Loss of resistance technique and guided by AP and lateral fluoroscopy. The correct needle position in the epidural space was verified with the injection of 2 mL of the water soluble contrast dye Isovue 200 contrast and observing an excellent epidurogram with the epidural spread of the dye, after negative aspiration for blood and CSF and in the absence of paresthesias. Again after negative aspiration, a 6 ml mixture containing 40 mg of Depo-medrol , and 2 ml of preservative free Normal Saline, and 2 ml of preservative free lidocaine 1% solution was injected and a washout of epidurogram was seen. Needle was withdrawn intact, skin was cleansed, and bandages were applied. COMPLICATIONS: None DISPOSITION / PLANS: The patient was placed in a supine position and transferred to the recovery area in a stable condition for observation. There was no evidence of lower extremity motor or sensory deficit after the procedure. Patient was discharged from the recovery room after meeting discharge criteria. Home discharge instructions were given to the patient by the staff. The patient was reexamined prior to discharge. The patient will schedule a follow up in the clinic in 2-4 weeks.
[2022-01-06 07:19] VITALS: RESP 16
[2022-01-06 07:38] VITALS: BP 133/77; PULSE 65
[2022-01-06] MEDS ORDERED: IV FLUID CONTINUATION 1,000 ML IV ONE (07:45)
--- NOTE | 2022-01-06 08:12 | FL ---
EXAMINATION TYPE: FL guided pain mgmt statistic DATE OF EXAM: 01/06/2022 HISTORY: Fluoroscopy time 4 seconds of fluoroscopy provided. IMPRESSION: 1. Fluoroscopy time.
== END 2022-01-06 07:50 | disposition home or self-care (01) ==
LOC: ORPAIN 06:07
PROVIDERS: ATTEND Specialist
DX: M51.16 Intervertebral disc disorders with radiculopathy, lumbar region (principal); M47.26 Other spondylosis with radiculopathy, lumbar region
CPT/HCPCS: 62323; J2250; J1030; J3010

== ENCOUNTER → 2022-01-24 | Outpatient (CLI) | payer MEDICARE ==
[2022-01-24 09:12] VITALS: BP 148/66; PULSE 71; RESP 18; TEMP 98.2
--- NOTE | 2022-01-24 14:18 | P.PAINPG ---
PQRS Measure Charge Sheet Comment: A 71 yr old female with a history of severe and chronic low back pain secondary to lumbar degenerative disc diseases and lumbar spondylosis with facet arthropathy presents today for evaluation s/p LESI L4-L5. Pt states she experienced 100% pain relief x 3-4 weeks s/p procedure. Pain level is currently at 0/10 in intensity. Pain is provoked by excessive weight bearing activity. Pain is alleviated with topicals, medications, heat, ice, home stretching regimen and rest. Interventional pain procedures completed include LESI L4-L5 Patient is currently on [place] prn Patient denies any side effects of the medication(s), denies excessive drowsiness or sleepiness, denies suicidal ideation and reports that the current pain medication is helping to control the pain and improve activities of daily living. Patient denies any motor or sensory deficits. Patient denies any fever or night sweats, denies any change in the bowel movements or urination. Physical Examination: -Constitutional: Cooperative. Not in acute distress . - Neurologic: Cranial nerve II to XII intact. No focal neurological deficits. - Psychatric: Alert & oriented x 3. Matching mood & appropriate affect. Judgment and insight intact. - Musculoskeletal: Cervical spine: Muscle bulk/ tone/ strength in the bilateral upper extremities normal Vertebral body tenderness to palpation over Spurling test positive Distraction test positive Facet loading test positive Thoracic spine Muscle bulk / tone/ strength in the bilateral paraspinal muscles normal Vertebral body tender to palpation over Facet loading test positive Lumbar spine: Motor bulk/ tone/ strength lower extremities , thigh and legs : 5/5 Deep tendon reflexes : Normal Knee Jerk. Normal Ankle Jerk . Vertebral body tenderness to palpation over L4 w deep palpation Lumbar Facet Loading Test positive Straight Leg Raise: positive at 30 degrees right side/ left side Gaenslen's Test positive Sacral spine : Severe tenderness over the Sacroiliac joint: right side / left side Range of motion: Flexion of the lumbar spine <60 degrees Range of motion: Extension of the lumbar spine <20 degrees Gaenslen's Test positive Dev's Test positive Michelle test: positive right side / left side Thigh Thrust Test Sacral Thrust Test Assessment and plan: Chronic low back pain secondary to lumbar degenerative disc disease , lumbar spondylosis with facet arthropathy without myelopathy Pt exhibited sufficient and optimal pain relief s/p procedure. She states she is pain free till this day. She will continue home pain mgmt modifying remedies and may return to our clinic on an as needed basis. All patient questions answered MAPS reviewed and it was appropriate. I have spent less than 30 minutes on patient care today. Dr Do was available by phone for the evaluation of this patient. The time was used to review the medical records including relevant urine studies and Prescription history (MAPs), review of the available imaging, evaluation and examination of the patient, coordination of care with the medical staff and if applicable referring physicians, as well as creation of the medical record - Pain Location None Non-Pharmacological Interventions: Heat, Home Exercise, Ice Pharmacological Interventions: Epidural, PRN Medication, Topical Medication PQRS Narrative: Smoking Status Former smoker Hx Alcohol Use (MH) Yes: rare Home Medications: Ambulatory Orders Cyanocobalamin [Vitamin B-12 Injection] 1,000 mcg SQ QMONTH 07/13/17 Levothyroxine Sodium [Synthroid] 125 mcg PO DAILY 07/13/17 Propranolol HCl [Propranolol HCl ER] 120 mg PO DAILY 07/13/17 Cholecalciferol (Vitamin D3) [Vitamin D3] 50 mcg PO DAILY 11/27/17 Magnesium Citrate 250 mg PO DAILY 11/27/17 Biotin [Biotin Disolve] 5,000 mcg PO DAILY 10/16/18 Galcanezumab-Gnlm [Emgality] 120 mg SQ Q30D 10/16/18 Montelukast [Singulair] 10 mg PO DAILY 10/16/18 Multivit with Calcium,Iron,Min [Women's Multivitamin] 1 each PO DAILY 08/07/19 Rizatriptan Benzoate [Rizatriptan] 10 mg PO DAILY PRN 08/07/19 Vit C/E/Zn/Coppr/Lutein/Zeaxan [Preservision Areds 2 Softgel] 1 each PO DAILY 08/07/19 metFORMIN HCL [Glucophage] 500 mg PO BID 01/22/20 Omeprazole 40 mg PO DAILY PRN 02/28/20 HYDROcodone/APAP 10-325MG [[place] 10-325] 1 tab PO Q12HR PRN 05/11/20 ALPRAZolam [Xanax] 1 mg PO DAILY PRN 12/30/20 Linaclotide [Linzess] 145 mcg PO DAILY 12/30/20 DULoxetine HCL [Cymbalta] 30 mg PO QAM 02/01/21 Gabapentin 600 mg PO BID 02/01/21 cycloSPORINE [Restasis Multidose] 1 drop BOTH EYES BID 09/10/21 Losartan Potassium 50 mg PO DAILY 10/26/21 Alirocumab [Praluent Pen] 75 mg SQ Q14D 01/04/22 tiZANidine [Zanaflex] 2 mg PO HS 01/04/22 Controlled Substance Measures - Controlled Substance Measures Is patient prescribed a controlled substance at discharge?: No
== END ==
LOC: PNWHC3 08:55
PROVIDERS: ATTEND Specialist
DX: M54.50 Low back pain, unspecified (principal); M54.16 Radiculopathy, lumbar region; M51.36 Other intervertebral disc degeneration, lumbar region; M47.816 Spondylosis without myelopathy or radiculopathy, lumbar region; G89.29 Other chronic pain; Z87.891 Personal history of nicotine dependence; Z88.1 Allergy status to other antibiotic agents; Z88.5 Allergy status to narcotic agent; Z88.6 Allergy status to analgesic agent; Z88.8 Allergy status to other drugs, medicaments and biological substances
CPT/HCPCS: 99211

== ENCOUNTER 2023-03-28 07:43 | Day surgery (SDC) | payer MEDICARE ==
[2023-03-28 08:21] LABS: Glucose,Whole Blood 128 mg/dL (70-110)
[2023-03-28 08:22] VITALS: RESP 16; TEMP 97.2
[2023-03-28] MEDS ORDERED: PROPOFOL 10 MG/ML 20 ML VIAL IV ONE (08:31)
[2023-03-28] MEDS ORDERED: LIDOCAINE 1% INJ 10MG/ML (20 ML MDV) ONE (08:31)
--- NOTE | 2023-03-28 08:36 | P.GSHP ---
History of Present Illness H&P Date: 03/28/23 Chief Complaint: GERD, screening 72-year-old female with chronic nausea. Worse over the last year or so. It happens most days. Also has issues with chronic constipation. No new bowel complaints. No rectal bleeding or melena. No family history of colon cancer. Past Medical History Past Medical History: Asthma, Cancer, Diabetes Mellitus, GERD/Reflux, Hyperlipidemia, Hypertension, Musculoskeletal Disorder, Pneumonia, Renal Disea se, Thyroid Disorder Additional Past Medical History / Comment(s): benign essential Hand tremors. Hx aspiration Pneumonia May 2017. past. hx. anemia. Hx uterine cancer., inter mittent nausea, hx. kidney failure related to NSAID use, resolved, DDD lumbar area History of Any Multi-Drug Resistant Organisms: None Reported Past Surgical History: Appendectomy, Breast Surgery, Hysterectomy, Orthopedic Surgery, Tonsillectomy Additional Past Surgical History / Comment(s): Bunionectomy right foot, breast r eduction, pain clinic procedures. Past Anesthesia/Blood Transfusion Reactions: No Reported Reaction, Family History of Problems w/ Anesthesia Additional Past Anesthesia/Blood Transfusion Reaction / Comment(s): sister had problem waking up w/propolful Smoking Status: Former smoker - Past Family History Sister(s) Family Medical History: Cancer, Pulmonary Embolus Medications and Allergies Home Medications Medication Instructions Recorded Confirmed Type Levothyroxine Sodium [Synthroid] 125 mcg PO DAILY 07/13/17 03/28/23 History Propranolol HCl [Propranolol HCl 120 mg PO DAILY 07/13/17 03/28/23 History ER] Cholecalciferol (Vitamin D3) 50 mcg PO DAILY 11/27/17 03/28/23 History [Vitamin D3] Magnesium Citrate 250 mg PO DAILY 11/27/17 03/28/23 History Biotin [Biotin Disolve] 5,000 mcg PO DAILY 10/16/18 03/28/23 History Galcanezumab-Gnlm [Emgality] 120 mg SQ Q30D 10/16/18 03/28/23 History Montelukast [Singulair] 10 mg PO DAILY 10/16/18 03/28/23 History Multivit with Calcium,Iron,Min 1 each PO DAILY 08/07/19 03/28/23 History [Women's Multivitamin] Rizatriptan Benzoate [Rizatriptan] 10 mg PO DAILY PRN 08/07/19 03/28/23 History Vit C/E/Zn/Coppr/Lutein/Zeaxan 1 each PO DAILY 08/07/19 03/28/23 History [Preservision Areds 2 Softgel] metFORMIN HCL [Glucophage] 500 mg PO BID 01/22/20 03/28/23 History Omeprazole 40 mg PO DAILY PRN 02/28/20 03/28/23 History HYDROcodone/APAP 10-325MG [[place] 1 tab PO Q12HR PRN 05/11/20 03/28/23 History 10-325] ALPRAZolam [Xanax] 1 mg PO DAILY PRN 12/30/20 03/28/23 History Linaclotide [Linzess] 145 mcg PO DAILY 12/30/20 03/28/23 History DULoxetine HCL [Cymbalta] 30 mg PO QAM 02/01/21 03/28/23 History Gabapentin 600 mg PO BID 02/01/21 03/28/23 History cycloSPORINE [Restasis Multidose] 1 drop BOTH EYES BID 09/10/21 03/28/23 History Losartan Potassium 50 mg PO DAILY 10/26/21 03/28/23 History Alirocumab [Praluent Pen] 75 mg SQ Q14D 01/04/22 03/28/23 History tiZANidine [Zanaflex] 2 mg PO HS 01/04/22 03/28/23 History Semaglutide [Ozempic] 0.5 mg SQ TH 03/21/23 03/28/23 History Allergies Allergy/AdvReac Type Severity Reaction Status Date / Time azithromycin Allergy Nausea & Verified 03/28/23 08:09 Vomiting codeine Allergy Nausea & Verified 03/28/23 08:09 Vomiting linagliptin [From Tradjenta] Allergy Rash/Hives/ Verified 03/28/23 08:09 blisters meloxicam Allergy avoids to Verified 03/28/23 08:09 prevent kidney failure per recreation therapy teacher [id number] Reductase Allergy LEG PAIN Verified 03/28/23 08:09 Inhibitor [Zrimjrt-Mmr-Nff Reductase Inhibitor] Sulfa (Sulfonamide Allergy leg cramps Verified 03/28/23 08:09 Antibiotics) NSAIDS (Non-Steroidal AdvReac avoids to Verified 03/28/23 08:09 Anti-Inflamma prevent kidney failure per recreation therapy teacher Surgical - Exam Vital Signs Temp Pulse Resp BP Pulse Ox 97.2 F L 74 16 139/75 95 03/28/23 08:20 03/28/23 08:20 03/28/23 08:20 03/28/23 08:20 03/28/23 08:20 Physical exam: General: Well-developed, well-nourished HEENT: Normocephalic, sclerae nonicteric Abdomen: Nontender, nondistended Extremities: No edema Neuro: Alert and oriented Results - Labs Abnormal Lab Results - Last 24 Hours (Table) 03/28/23 Range/Units 08:18 POC Glucose (mg/dL) 128 H (70-110) mg/dL Assessment and Plan (1) Colon cancer screening Narrative/Plan: Will proceed with upper and lower endoscopy Current Visit: Yes Status: Acute Code(s): Z12.11 - ENCOUNTER FOR SCREENING FOR MALIGNANT NEOPLASM OF COLON SNOMED Code(s): 215465208
--- NOTE | 2023-03-28 09:05 | P.PCN ---
Date of Procedure: 03/28/23 Procedure(s) Performed: PREOPERATIVE DIAGNOSIS: GERD, nausea, screening POSTOPERATIVE DIAGNOSIS: Duodenitis, gastritis, normal colonoscopy PROCEDURE: 1. EGD with biopsy 2. Colonoscopy ANESTHESIA: MAC SURGEON: Jesus Vargas M.D. SPECIMENS: Antrum, duodenum ENDOSCOPIC PROCEDURE: The patient was on the endoscopy table in the left decubitus position. The Olympus gastroscope was inserted into the oropharynx and passed under direct visualization to the region of the third portion of the duodenum. From that point the scope was slowly withdrawn inspecting all surfaces carefully. There was mild duodenitis present. A biopsy of the duodenum took place. The pylorus was widely patent. The stomach was carefully inspected. There was gastritis present as well. A biopsy of the antrum took place to rule out H. pylori. Retroflexion revealed a normal hiatus. The esophagus was then carefully examined. There were no neoplastic inflammatory or polypoid lesions throughout the visualized esophagus. The patient was kept on the endoscopy table in the left decubitus position. The Olympus colonoscope was inserted into the anus and passed under direct visualization to the base of the cecum. The appendiceal orifice was visualized. From that point the scope was slowly withdrawn inspecting all surfaces carefully. There were no neoplastic inflammatory or polypoid lesions throughout the cecum, ascending, transverse, descending, sigmoid and rectum. There was no visible diverticulosis noted. The patient's prep was slight a suboptimal and required significant irrigation and evacuation of liquid stool. Digital rectal examination was normal. The patient was taken to the recovery room in stable condition per anesthesia guidelines. RECOMMENDATIONS: Resume diet. Take antiacids daily instead of as needed. Await biopsy results.
[2023-03-28 09:22] VITALS: BP 117/57; PULSE 78
== END 2023-03-28 09:44 | disposition home or self-care (01) ==
LOC: ORWHC2ENDO 07:43
PROVIDERS: ATTEND Surgery
DX: Z12.11 Encounter for screening for malignant neoplasm of colon (principal); K29.50 Unspecified chronic gastritis without bleeding; K29.80 Duodenitis without bleeding; E11.9 Type 2 diabetes mellitus without complications; E78.5 Hyperlipidemia, unspecified; I10 Essential (primary) hypertension; J45.909 Unspecified asthma, uncomplicated; K21.9 Gastro-esophageal reflux disease without esophagitis; E07.9 Disorder of thyroid, unspecified; Z79.899 Other long term (current) drug therapy; Z79.84 Long term (current) use of oral hypoglycemic drugs; Z79.890 Hormone replacement therapy; Z85.42 Personal history of malignant neoplasm of other parts of uterus; Z87.891 Personal history of nicotine dependence; Z88.1 Allergy status to other antibiotic agents; Z88.2 Allergy status to sulfonamides; Z88.6 Allergy status to analgesic agent; Z88.8 Allergy status to other drugs, medicaments and biological substances; Z90.49 Acquired absence of other specified parts of digestive tract
CPT/HCPCS: 88305; 43239; J2001; J2704; G0121

== ENCOUNTER → 2023-07-18 | Outpatient (CLI) | payer MEDICARE ==
[2023-07-18 15:31] LABS: Basophils % (A) 0.9 %; Eosinophils # (A) 0.38 X 10*3/uL (0.04-0.35); Eosinophils % (A) 3.6 %; HCT 44.5 % (37.2-46.3); HGB 13.9 g/dL (12.0-15.0); Lymphocytes # (A) 2.81 X 10*3/uL (0.90-5.00); Lymphocytes % (A) 26.3 %; MCH 28.7 pg (27.0-32.0); MCHC 31.2 g/dL (32.0-37.0); MCV 91.8 FL (80.0-97.0); Mean Platelet Volume 12.1 FL (9.5-12.2); Monocytes # (A) 0.88 X 10*3/uL (0.20-1.00); Monocytes % (A) 8.2 %; NRBC Per 100 WBC 0 X 10*3/uL (0.00-0.01); Neutrophils # (A) 6.48 X 10*3/uL (1.80-7.70); Neutrophils % (A) 60.7 %; Platelet Count 267 X 10*3/uL (140-440); RBC 4.85 X 10*6/uL (4.10-5.20); RDW 15.1 % (11.5-14.5); WBC 10.68 X 10*3/uL (4.50-10.00)
[2023-07-18 15:46] LABS: BUN/Creat Ratio 26.29 Ratio (12.00-20.00); Blood Urea Nitrogen 18.4 mg/dL (9.0-27.0); Calcium 9.4 mg/dL (8.7-10.3); Chloride 102 mmol/L (96-109); Glucose 119 mg/dL (70-110); Potassium 4.6 mmol/L (3.5-5.5); Sodium 142 mmol/L (135-145)
== END | disposition home or self-care (01) ==
LOC: LABWHC1 07:06
PROVIDERS: ATTEND Orthopaedic Surgery Hand Surgery
DX: Z01.812 Encounter for preprocedural laboratory examination (principal); M65.4 Radial styloid tenosynovitis [de Quervain]
CPT/HCPCS: 36415; 80048; 85025

== ENCOUNTER 2023-07-26 07:23 | Day surgery (SDC) | payer MEDICARE ==
--- NOTE | 2023-07-25 13:18 | P.HPOR ---
History of Present Illness H&P Date: 07/25/23 Subjective: This is a 73 year old female that presents today for follow up evaluation regarding a several month history of worsening radial sided left wrist pain as well as new right sided radial sided wrist pain. She has pain with lifting and any type of repetitive movement of the wrist that extends from the base of the thumb up to the mid forearm and sometimes to the elbow. She denies any injury or inciting event. She denies any numbness or tingling.She underwent a left wrist injection in October of 2022 with relief of her symptoms but they returned within the last month. 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 Physical Examination: LUE: AIN/PIN/Radial/Ulnar/Median motor intact. Radial/Ulnar/Median SILT. 2+/4 Radial/Ulnar pulses palpated. 5/5 APB, 5/5 FDI. Positive Finkelsteins, negative CMC grind, negative Durkan's compression. RUE: AIN/PIN/Radial/Ulnar/Median motor intact. Radial/Ulnar/Median SILT. 2+/4 Radial/Ulnar pulses palpated. 5/5 APB, 5/5 FDI. Positive Finkelsteins, negative CMC grind, negative Durkan's compression. Impression: 1.) Bilateral wrist DeQuervain's tenosynovitis Plan: Diagnosis and treatment options were discussed with the patient. She has failed conservative treatment for her left DeQuervains and wishes to pursue a left fir st dorsal compartment release. Risks and benefits of surgery including bleeding, infection, damage to surrounding tissue, need for further surgery, residual numbness were discussed and the patient wished to go forward with surgery. She is given a right thumb spica brace for her new right DeQuervains tenosynovitis symptoms. The patient was agreeable with this plan. CC: Isac You M.D. -Jerry Kim DO Orthopedic Hand/Upper Extremity Surgeon Past Medical History Past Medical History: Asthma, Cancer, Diabetes Mellitus, GERD/Reflux, Hyper lipidemia, Hypertension, Musculoskeletal Disorder, Pneumonia, Renal Disease, Thyroid Disorder Additional Past Medical History / Comment(s): benign essential Hand tremors. Hx aspiration Pneumonia May 2017. past. hx. anemia. Hx uterine cancer., intermittent nausea, hx. kidney failure related to NSAID use, resolved, DDD lumbar area History of Any Multi-Drug Resistant Organisms: None Reported Past Surgical History: Appendectomy, Breast Surgery, Hysterectomy, Orthopedic Surgery, Tonsillectomy Additional Past Surgical History / Comment(s): Bunionectomy right foot, breast reduction, pain clinic procedures. maria r cataracts Past Anesthesia/Blood Transfusion Reactions: No Reported Reaction, Family History of Problems w/ Anesthesia Additional Past Anesthesia/Blood Transfusion Reaction / Comment(s): sister had problem waking up w/propofol Smoking Status: Former smoker - Past Family History Sister(s) Family Medical History: Cancer, Pulmonary Embolus Medications and Allergies Home Medications Medication Instructions Recorded Confirmed Type Levothyroxine Sodium [Synthroid] 125 mcg PO DAILY 07/13/17 07/24/23 History Propranolol HCl [Propranolol HCl 120 mg PO DAILY 07/13/17 07/24/23 History ER] Magnesium Citrate 250 mg PO DAILY 11/27/17 07/24/23 History Biotin [Biotin Disolve] 10,000 mcg PO DAILY 10/16/18 07/24/23 History Galcanezumab-Gnlm [Emgality] 120 mg SQ Q30D 10/16/18 07/24/23 History Montelukast [Singulair] 10 mg PO DAILY 10/16/18 07/24/23 History Multivit with Calcium,Iron,Min 1 each PO DAILY 08/07/19 07/24/23 History [Women's Multivitamin] Vit C/E/Zn/Coppr/Lutein/Zeaxan 1 each PO DAILY 08/07/19 07/24/23 History [Preservision Areds 2 Softgel] metFORMIN HCL [Glucophage] 500 mg PO BID 01/22/20 07/24/23 History Omeprazole 40 mg PO DAILY PRN 02/28/20 07/24/23 History HYDROcodone/APAP 10-325MG [[place] 1 tab PO Q12HR PRN 05/11/20 07/24/23 History 10-325] ALPRAZolam [Xanax] 1 mg PO DAILY PRN 12/30/20 07/24/23 History Linaclotide [Linzess] 145 mcg PO Q48H 12/30/20 07/24/23 History DULoxetine HCL [Cymbalta] 30 mg PO QAM 02/01/21 07/24/23 History Gabapentin 600 mg PO BID 02/01/21 07/24/23 History cycloSPORINE [Restasis Multidose] 1 drop BOTH EYES BID 09/10/21 07/24/23 History Losartan Potassium 50 mg PO DAILY 10/26/21 07/24/23 History Alirocumab [Praluent Pen] 75 mg SQ Q14D 01/04/22 07/24/23 History tiZANidine [Zanaflex] 2 mg PO HS 01/04/22 07/24/23 History Semaglutide [Ozempic] 0.5 mg SQ TH 03/21/23 07/24/23 History Allergies Allergy/AdvReac Type Severity Reaction Status Date / Time azithromycin Allergy Nausea & Verified 07/24/23 08:05 Vomiting codeine Allergy Nausea & Verified 07/24/23 08:05 Vomiting linagliptin [From Tradjenta] Allergy Rash/Hives/ Verified 07/24/23 08:05 blisters meloxicam Allergy avoids to Verified 07/24/23 08:05 prevent kidney failure per chief environmental commitment officer Qaeoaaz-HHE-BsU Reductase Allergy LEG PAIN Verified 07/24/23 08:05 Inhibitor [Zsglveb-Ifq-Phv Reductase Inhibitor] Sulfa (Sulfonamide Allergy leg cramps Verified 07/24/23 08:05 Antibiotics) NSAIDS (Non-Steroidal AdvReac avoids to Verified 07/24/23 08:05 Anti-Inflamma prevent kidney failure per chief environmental commitment officer Physical Examination Osteopathic Statement: *. No significant issues noted on an osteopathic structural exam other than those noted in the History and Physical/Consult.
[~2023-07-26 07:23] MED LIST changes: +DEXAMETHASONE SOD PHOSPHATE 4 MG/ML 1 ML VIAL IV ONE; -LACTATED RINGERS 1,000 ML IV SCH; -LIDOCAINE 1% (10MG/ML) FOR IV START INTRADERMA PRN; +ONDANSETRON 4 MG/2 ML VIAL IVP ONE; +Pre Op ABX Message 1 EACH MISC MISCELLANE ONE; +fentaNYL (PF) 50 MCG/ML 2 ML AMP IV PRN
[2023-07-26] MEDS: LACTATED RINGERS 1,000 ML IV SCH (07:46)
[2023-07-26 08:01] LABS: Glucose,Whole Blood 112 mg/dL (70-110)
[2023-07-26] MEDS: ONDANSETRON 4 MG/2 ML VIAL IVP ONE (08:07)
[2023-07-26] MEDS: DEXAMETHASONE SOD PHOSPHATE 4 MG/ML 1 ML VIAL IVP ONE (08:07)
[2023-07-26] MEDS: BUPIVACAINE (PF) 0.5% 30 ML VIAL SQ ONE ×2 (08:18→08:31)
[2023-07-26] MEDS: LIDOCAINE 1% INJ 10MG/ML (20 ML MDV) SQ ONE ×2 (08:18→08:31)
[2023-07-26] MEDS ORDERED: MIDAZOLAM 2 MG/2 ML VIAL ONE (08:22)
[2023-07-26] MEDS ORDERED: PROPOFOL 10 MG/ML 20 ML VIAL IV ONE (08:22)
[2023-07-26] MEDS ORDERED: fentaNYL (PF) 50 MCG/ML 2 ML AMP ONE (08:22)
[2023-07-26 09:01] LABS: Glucose,Whole Blood 111 mg/dL (70-110)
--- NOTE | 2023-07-26 09:26 | P.OP ---
Date of Procedure: 07/26/23 Preoperative Diagnosis: Left DeQuervains tenosynovitis Postoperative Diagnosis: Left DeQuervains tenosynovitis Procedure(s) Performed: Left first dorsal compartment release Anesthesia: MAC Surgeon: Jerry Kim [employer] Foreman #1: Eliseo Brownlee Estimated Blood Loss (ml): 0 Pathology: none sent Condition: stable Disposition: PACU Description of Procedure: This is a 73 year old female who presents today for a left first dorsal compartment release after having failed conservative treatment. Risks and benefits of surgery were discussed with the patient including bleeding, damage to surrounding tissue, infection, need for further surgery as well as risks of anesthesia including pulmonary embolism and even and the patient wished to proceed with surgical intervention. The patients was seen in the pre-operative area by myself. Consent and H&P were completed and updated. The correct extremity was marked in the pre-operative area by myself and all other questions were answered. Operative Narrative: The patient was brought to the operating room by the department of anesthesia. They remained on the portable stretcher and a rolling hand table was brought to the side of the operative extremity. The patient was then drifted off to sleep by the department of anesthesia. A nonsterile tourniquet was then applied to the operative extremity and the left upper extremity was then prepped and draped in normal sterile fashion. Pre-operative time out was performed indicating the correct patient, procedure and laterality. All in the room agreed. MAC anesthesia was utilized and a 50:50 mixture of 1% Lidocaine and 0.5% bupivacaine was injected into the subcutaneous tissues of the radial wrist skin, 4ccs total. Pre-operative antibiotics were given prior to skin incision. The operative extremity was the exsanguinated with an esmarch bandage and the tourniquet was inflated to 250mmHg. 15 blade scalpel was used to make a horizontal skin incision centered over the first dorsal compartment of the left wrist. Blunt dissection was taken down to the proximal edge of the first dorsal compartment while taking care to identify and protect branches of the superficial radial sensory nerve. The first dorsal compartment was released in its entirety from proximal to distal. APL and EPB tendons were identified and there was a seperate compartment identified for the APB tendon, this was also released. Skin closure was performed with 4-0 Monocryl suture and steri strips. Sterile soft dressing was applied consisting of 4x4's cast padding and an delvin wrap. The patient was then woken by the department of anesthesia and transferred to PACU in stable condition. Eliseo HAMILTON was present to assist in the major portions of the procedure. Jerry iKm D.O. Orthopedic Hand/Upper Extremity Surgeon
[2023-07-26 09:38] VITALS: TEMP 97
[2023-07-26 10:10] VITALS: BP 121/73; PULSE 86; RESP 17
== END 2023-07-26 09:50 | disposition home or self-care (01) ==
LOC: OR 07:23
PROVIDERS: ATTEND Orthopaedic Surgery Hand Surgery
DX: M65.4 Radial styloid tenosynovitis [de Quervain] (principal); J45.909 Unspecified asthma, uncomplicated; E11.9 Type 2 diabetes mellitus without complications; K21.9 Gastro-esophageal reflux disease without esophagitis; I10 Essential (primary) hypertension; M79.9 Soft tissue disorder, unspecified; E78.5 Hyperlipidemia, unspecified; J18.9 Pneumonia, unspecified organism; F41.9 Anxiety disorder, unspecified; E07.9 Disorder of thyroid, unspecified; Z85.42 Personal history of malignant neoplasm of other parts of uterus; G25.0 Essential tremor; D64.9 Anemia, unspecified; Z90.710 Acquired absence of both cervix and uterus; Z90.49 Acquired absence of other specified parts of digestive tract; Z98.890 Other specified postprocedural states; Z87.891 Personal history of nicotine dependence; Z80.9 Family history of malignant neoplasm, unspecified; Z79.890 Hormone replacement therapy; Z79.84 Long term (current) use of oral hypoglycemic drugs; Z79.899 Other long term (current) drug therapy; Z88.1 Allergy status to other antibiotic agents; Z88.5 Allergy status to narcotic agent; Z88.8 Allergy status to other drugs, medicaments and biological substances; Z88.2 Allergy status to sulfonamides; Z88.6 Allergy status to analgesic agent
CPT/HCPCS: 25000; J2250; J1100; J2405; J2001; J3010; J2704; J0665

== ENCOUNTER → 2023-08-22 | Outpatient (CLI) | payer MEDICARE ==
--- NOTE | 2023-08-28 10:14 | MR ---
EXAMINATION TYPE: MR ankle LT wo/w con DATE OF EXAM: 08/22/2023 8:11 AM CLINICAL INDICATION:Female, 73 years old with history of M76.62 ACHILLES TENDINITIS, LEFT LEG; PHH, L eft foot/ankle pain x 1 year. COMPARISON: None. TECHNIQUE: TECHNIQUE: Multi planar, multi sequence imaging was performed. No Gadolinium given. IV Contrast: 8.5 cc Gadavist None. FINDINGS: LIGAMENTS AND TENDONS: There is an enhancing tear of the Achilles tendon and, an intrasubstance tear near the insertion sign ifying a small Achilles tendonitis/tendinopathy/tear. The anterior talofibular ligament, calcaneofibular ligament, posterior talofibular ligament, tibiofi bular ligaments, and deltoid ligament are intact. The anterior compartment, lateral compartment, and medial compartment tendons have a normal appearance. The portion of the plantar fascia seen is unre markable. OSSEOUS STRUCTURES AND CARTILAGE: The talar dome has a normal morphology and signal intensity. The sinus tarsus has a normal signal intensity. The bone marrow signal intensity is within normal limits. A small joint effusion is present. IMPRESSION: There is an enhancing tear of the Achilles tendon and, an intrasubstance tear near the insertion sign ifying a small Achilles tendonitis/tendinopathy/tear.
== END | disposition home or self-care (01) ==
LOC: RADMRIMAIN 07:18
PROVIDERS: ATTEND Internal Medicine
DX: M67.874 Other specified disorders of tendon, left ankle and foot (principal); M24.875 Other specific joint derangements left foot, not elsewhere classified; M76.62 Achilles tendinitis, left leg
CPT/HCPCS: 73723; A9585

== ENCOUNTER → 2023-09-25 | Outpatient (CLI) | payer MEDICARE ==
--- NOTE | 2023-09-25 11:52 | MR ---
EXAMINATION TYPE: MR brain wo/w con DATE OF EXAM: 09/25/2023 10:40 AM CLINICAL INDICATION:Female, 73 years old with history of D33.2 BENIGN NEOPLASM OF BRAIN; PHH, F/U rachelle ign neoplasm, meningioma. COMPARISON: 01/09/2024. TECHNIQUE: Multi planar, multi sequence imaging was performed through the brain including: T1, T2, In version recovery, susceptibility weighted imaging and gradient echo imaging and Diffusion weighted im aging. The patient was then given intravenous contrast and multi planar, T1 fat-saturation images wer e obtained. IV Contrast: 8.5 cc Gadavist FINDINGS: Stable left parietal meningioma which demonstrates homogenous postcontrast enhancement chris uring up to 17 x 8 mm which is similar prior. This does demonstrate a dural tail. The hernandez-white junctions, ventricular system, basal cisterns appear unremarkable. Diffusion-weighted imaging shows no evidence of restricted diffusion to suggest acute/subacute infarct. Intracranial ar terial flow voids are maintained. Midline structures show no abnormality. Scattered foci of high T2 s ignal intensity are seen within the periventricular white matter. The susceptibility weighted images do not reveal any evidence for micro-hemorrhage. After administration of gadolinium, no additional ev idence for abnormal enhancement is seen. The bone marrow signal is within normal limits. Paranasal sinuses and mastoid air cells: No significant paranasal sinus disease. Visualized orbits: Orbital contents are intact. IMPRESSION: 1. Stable left extra-axial meningioma compared to prior. 2. No additional evidence of intra-axial intracranial mass, acute/subacute infarct, or abnormal enhan cement. 3. Nonspecific white matter changes, likely related to small vessel ischemic disease.
== END | disposition home or self-care (01) ==
LOC: RADMRIMAIN 09:44
PROVIDERS: ATTEND Psychiatry & Neurology Neurology
DX: D32.9 Benign neoplasm of meninges, unspecified (principal); G93.89 Other specified disorders of brain
CPT/HCPCS: 70553; A9585